=== PATIENT | male | born 1950 | race Caucasian/White ===

== ENCOUNTER 2020-05-09 15:34 | Emergency (ER) | payer MEDICARE, MEDICAID, SELFPAY ==
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
--- NOTE | 2020-05-09 16:04 | ECG_ITS ---
Measurements Intervals [place] Rate: 97 P: 64 PA: 155 QRS: 66 QRSD: 85 T: 24 QT: 334 QTc: 425 Interpretive Statements SINUS RHYTHM NONSPECIFIC ST ABNORMALITY- ANTEROLAT/INF LEADS BASELINE WANDER- V3, V5 BORDERLINE ECG Electronically Signed On 05-09-2020 18:50:23 CDT by Juan Juares D.O.
[2020-05-09 16:06] VITALS: BP 166/101; PULSE 96; RESP 16; TEMP 36.6; O2SAT 96
[2020-05-09 16:11] VITALS: BP 166/101; PULSE 96; RESP 15; O2SAT 96
[2020-05-09 16:16] LABS: Basophils Absolute Auto 0.1 K/mm3 (0.0-0.1); Basophils Percent Auto 0.8 % (0.2-1.2); Eosinophils Percent Auto 0.3 % (0-4.4); Hematocrit 44.6 % (42.0-52.0); Hemoglobin 13.5 g/dL (14.0-18.0); Immature Granulocyte Percent A 0.8 % (0-0.5); Lymphocytes Absolute Auto 1.65 K/mm3 (0.9-3.2); Lymphocytes Percent Auto 13.2 % (18.3-44.2); Mean Corpuscular HGB Conc 30.3 g/dl (32-36); Mean Corpuscular Hemoglobin 22.7 pg (26-34); Mean Platelet Volume 8.1 fl (7.4-10.4); Monocytes Absolute Auto 0.8 K/mm3 (0.1-0.6); Monocytes Percent Auto 6.5 % (2.6-8.5); Neutrophils Absolute Auto 9.8 K/mm3 (1.3-6.7); Neutrophils Percent Auto 78.4 % (45.5-73.1); Platelet Count Result 329 k/mm3 (150-375); Red Blood Count 5.95 M/mm3 (4.6-6.20); Red Cell Distribution Width 14.8 % (11.5-14.5); White Blood Count 12.5 K/mm3 (4.5-10.0)
[2020-05-09 16:27] LABS: Alanine Aminotransferase 11 U/L (4-50); Albumin Level 4.1 g/dL (3.5-5.1); Alkaline Phosphatase 134 U/L (38-126); Anion Gap 8 mmol/L (8-16); Aspartate Amino Transferase 29 U/L (17-59); Bilirubin,Total 0.9 mg/dL (0.2-1.3); Blood Urea Nitrogen 14 mg/dL (9-20); Calcium 9.3 mg/dL (8.4-10.2); Carbon Dioxide 30 mmol/L (22-30); Chloride 100 mmol/L (98-107); Estimated CRCL calculation 84 ml/min; Estimated Glomerular Filt Rate > 60; Glucose 126 mg/dL (75-110); Potassium 4.4 mmol/L (3.4-5.0); Sodium 138 mmol/L (137-145)
[2020-05-09 17:30] VITALS: BP 165/106; PULSE 97; RESP 16; O2SAT 97
--- NOTE | 2020-05-09 18:35 | ED.GENADULT ---
HPI - General Adult General Chief complaint: Skin/Abscess/Foreign Body Stated complaint: cyst/mass lt axilla, weakness Time Seen by Provider: 05/09/20 16:52 Source: patient and family Mode of arrival: ambulatory Limitations: no limitations History of Present Illness HPI narrative: 69 years old white male, insignificant past medical history, presents with a large mass at the left axilla for 10 to 12 months, the last few weeks patient been losing weight. Patient denies any fever, chills, nausea, vomiting, diarrhea, constipation, shortness of breath, chest pain, back pain. Patient does not have a family physician, last time was seen by years ago. Patient does not smoke, does not drink or use drugs. Patient lives with family. Related Data Home Medications Medication Instructions Recorded Confirmed No Home Medications 05/09/20 05/09/20 Allergies Allergy/AdvReac Type Severity Reaction Status Date / Time No Known Allergies Allergy Verified 05/09/20 16:12 Review of Systems Review of Systems: Narrative: CONSTITUTIONAL: Denies fever, chills, or sweats. EYES: Denies visual changes, redness, or discharge. ENT: Denies rhinorrhea, congestion, sore throat, or otalgia. CARDIOVASCULAR: Denies chest pain, palpitations, or edema. RESPIRATORY: Denies cough or dyspnea. GASTROINTESTINAL: Denies abdominal pain, nausea, vomiting, or diarrhea. GENITOURINARY: Denies dysuria or hematuria. SKIN: Denies rash or itching. MUSCULOSKELETAL: Denies back pain, joint pain, or myalgia. NEUROLOGIC: Denies headache, numbness, or weakness. PSYCHIATRIC: Denies anxiety or depression. PMFSH Social History Social History (Updated 05/09/20 @ 18:38 by Lizzie Warner MD) Second hand tobacco smoke exposure: No Alcohol intake: never Substance use: never Living arrangements: with family Gender identity (if verbalized by the patient): Male Exam Narrative: Exam Narrative: General appearance: Well-developed, well-nourished Skin: Normal color Head: Normocephalic, nontraumatic Eyes: Clear conjunctiva ENT: Oropharynx normal, ears normal, nose normal Neck: Supple, nontender Chest and respiratory: Airway patent, no respiratory distress, no accessory muscle use, large, hard mass at the left axilla more anteriorly, 15 x 15 cm Heart: Regular rate/rhythm Abdomen: Soft, nontender, no organomegaly, quiet bowel sounds Vascular: Normal peripheral pulses, normal capillary refill. 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 My concern is malignancy. Labs, chest x-ray, UA, ordered. Further plan to follow. Differential Diagnosis Differential Diagnosis: Malignancy, electrolyte imbalance, sarcoidosis Vital Signs Vital Signs: Vital Signs Temperature 36.6 C 05/09/20 16:06 Pulse Rate 96 05/09/20 16:06 Respiratory Rate 16 05/09/20 16:06 Blood Pressure 166/101 H 05/09/20 16:06 Pulse Oximetry 96 05/09/20 16:06 Temperature 36.6 C 05/09/20 16:06 Pulse Rate 96 05/09/20 1
[2020-05-09 18:59] VITALS: BP 178/107; PULSE 98; RESP 16; O2SAT 97
== END 2020-05-09 19:00 | disposition home or self-care (01) ==
PROVIDERS: Emergency Medicine; Emergency Provider Emergency Medicine
DX: C18.6 Malignant neoplasm of descending colon (principal); C79.89 Secondary malignant neoplasm of other specified sites
CPT/HCPCS: 36415; 71046; 71260; 74177; 80053; 85025; 93005; 99284; Q9967

== ENCOUNTER 2020-05-16 15:25 | Outpatient (CLI) | payer MEDICARE, MEDICAID, SELFPAY ==
[2020-05-16 15:54] LABS: Basophils Absolute Auto 0.1 K/mm3 (0.0-0.1); Basophils Percent Auto 0.5 % (0.2-1.2); Eosinophils Percent Auto 0.3 % (0-4.4); Hematocrit 45.4 % (42.0-52.0); Hemoglobin 13.9 g/dL (14.0-18.0); Immature Granulocyte Absolute 0.08 K/mm3 (0.00-0.031); Immature Granulocyte Percent A 0.7 % (0-0.5); Lymphocytes Absolute Auto 1.65 K/mm3 (0.9-3.2); Lymphocytes Percent Auto 14.1 % (18.3-44.2); Mean Corpuscular HGB Conc 30.6 g/dl (32-36); Mean Corpuscular Hemoglobin 22.5 pg (26-34); Mean Corpuscular Volume 73.5 fl (80-100); Mean Platelet Volume 8.5 fl (7.4-10.4); Monocytes Absolute Auto 0.6 K/mm3 (0.1-0.6); Monocytes Percent Auto 5.2 % (2.6-8.5); Neutrophils Absolute Auto 9.3 K/mm3 (1.3-6.7); Neutrophils Percent Auto 79.2 % (45.5-73.1); Platelet Count Result 269 k/mm3 (150-375); Red Blood Count 6.18 M/mm3 (4.6-6.20); Red Cell Distribution Width 16.2 % (11.5-14.5); White Blood Count 11.7 K/mm3 (4.5-10.0)
[2020-05-16 16:50] LABS: Iron 25 ug/dL (49-181)
[2020-05-16 17:01] LABS: Percent Iron Saturation 11 % (20-50)
[2020-05-16 17:39] LABS: Carcinoembryonic Antigen < 0.3 ng/mL (0.0-3.0)
== END 2020-05-16 15:26 | disposition home or self-care (01) ==
PROVIDERS: Visit Provider Internal Medicine Hematology & Oncology
DX: C18.6 Malignant neoplasm of descending colon (principal)
CPT/HCPCS: 36415; 82378; 82728; 83540; 83550; 85025

== ENCOUNTER 2020-05-22 00:31 | Outpatient (CLI) | payer MEDICARE, MEDICAID, SELFPAY ==
[2020-05-22 16:32] LABS: SARS-CoV-2 RNA PCR Negative
== END 2020-05-22 00:32 | disposition home or self-care (01) ==
LOC: ANHCOVIDDT 00:32
PROVIDERS: Visit Provider Surgery
DX: Z01.812 Encounter for preprocedural laboratory examination (principal); Z20.828 Contact with and (suspected) exposure to other viral communicable diseases
CPT/HCPCS: 87635; C9803; U0003

== ENCOUNTER 2020-05-24 00:32 | Day surgery (SDC) | payer MEDICARE, MEDICAID, SELFPAY ==
[2020-05-18 15:38] VITALS: BMI 28.1
--- NOTE | 2020-05-23 14:34 | P.PNAN_ITS ---
Anes - Initial Pre Proc Eval Procedure: Operation Date: 05/24/20 13:30 Proposed Procedures p Insertion Cholo Cath - Loyda Conner MD Date/Time: 05/23/20 14:34 Surgeon: Loyda Conner MD Pre Op Diagnosis: Malignant Neoplasm Of Descending Colon Patient Data Age: 69 Gender: M Height: 1.73 m Weight: 83.95 kg Allergies Allergy/AdvReac Type Severity Reaction Status Date / Time No Known Allergies Allergy Verified 05/24/20 11:33 Home Medications Medication Instructions Recorded Confirmed Type oxycodone-acetaminophen [Percocet] 1 tablet PO Q4H PRN #30 tablet 05/09/20 05/24/20 Rx ECG: Date of Service: 05/09/20 Procedure(s): CA 12 lead EKG Accession Number(s): [id number] cc: ~ Measurements Intervals [place] Rate: 97 P: 64 RI: 155 QRS: 66 QRSD: 85 T: 24 QT: 334 QTc: 425 Interpretive Statements SINUS RHYTHM NONSPECIFIC ST ABNORMALITY- ANTEROLAT/INF LEADS BASELINE WANDER- V3, V5 BORDERLINE ECG Electronically Signed On 05-09-2020 18:50:23 CDT by Juan Juares D.O. Dictated By: Juan Juares DO 05/09/20 1603 Patient hx anesthesia problems: none Family hx anesthesia problems: none PMFSH Past Medical History Medical History (Updated 05/23/20 @ 14:35 by Faustino Heller MD) Colon cancer COLON CA DX 05/02/20 Mass of left axilla Social History Social History (Updated 05/09/20 @ 18:38 by Lizzie Warner MD) Smoking packs per day: 1 Smoking cigarettes per day: 20.0 Years smoked: 8 Smoking pack-years: 8.00 Smoking status: Former smoker Tobacco type: cigarettes Second hand tobacco smoke exposure: No Smoking end date: 09/15/74 Alcohol intake: never Substance use: never Living arrangements: with family Gender identity (if verbalized by the patient): Male Spiritual care concerns: No Anes - Eval Final PreProcedure Day of Procedure 05/23/20 14:34 Patient weight: overweight Heart: regular rate and rhythm Lungs: clear to auscultation and normal air movement Airway: Mallampati scale class II Neurological: alert and oriented Last oral intake: >/= 8 hours ASA classification: III Emergent: no Anesthetic plan: proceed Anesthesia type and monitoring: general GIVS Informed Consent: The patient's anesthetic plan and its attendant risks and benefits were discussed with the patient/family/POA. Questions were solicited and answers provided to the satisfaction of the patient/family/POA.
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
--- NOTE | ~2020-05-24 | US_ITS ---
EXAMINATION: US biopsy lymph node DATE: 05/24/2020 11:41 INDICATION: Malignant neoplasm of the descending colon. Metastatic left axillary mass. TECHNIQUE: The procedure including the risks and benefits was discussed with the patient. Risks discu ssed included bleeding and infection. The patient understood the risks and agreed to proceed. The sk in overlying the left axilla was prepped and draped in usual sterile fashion. Anesthetic was adminis tered with 1% lidocaine subcutaneously. An 18 gauge core biopsy needle was advanced under continuous ultrasound observation to the lesion of interest. 5 core biopsy specimens were obtained. The needl e was removed and the entry site was cleaned and dressed. Post procedure ultrasound demonstrated no hemorrhage. FINDINGS: Ultrasound images demonstrate biopsy needle advanced into an incompletely visualized hypoec hoic mass with lobular margins at the left axilla. The visualized portions of the mass measures at le ast 7.7 cm, reportedly 15.[address] IMPRESSION: 1. Successful Ultrasound-guided biopsy of a 15.5 cm left axillary mass. Reviewed, dictated and finalized at location A.
--- NOTE | ~2020-05-24 | XR_ITS ---
EXAMINATION: XR fl guide central line place INDICATION: Port-A-Cath insertion TECHNIQUE: Three intraoperative fluoroscopic images are submitted for review. Total fluoroscopic time is 17.8 seconds. I was not present for catheter insertion. COMPARISON: None available FINDINGS: Fluoroscopic images demonstrate a right subclavian Port-A-Cath ending with its tip in the p roximal superior vena cava. Check pelvis project over the right thorax. Pulmonary masses are also not ed, consistent with metastatic disease. IMPRESSION: 1. Right subclavian Port-A-Cath insertion. Please refer to procedure note for full details. Reviewed, dictated and finalized at location B. IMPRESSION: 1. Right subclavian Port-A-Cath insertion. Please refer to procedure note for f ull details.
[2020-05-24 11:50] VITALS: BP 143/103; PULSE 95; RESP 18; TEMP 36; O2SAT 98
[2020-05-24] MEDS: LACTATED RINGERS 1,000 ML 30 ML IV CONT (12:05)
[2020-05-24 12:23] LABS: INR 1.2; Partial Thromboplastin Time 32.4 SECONDS (22.3-36.8); Prothrombin Time 14.9 Seconds (11.1-14.7)
[2020-05-24] MEDS: KETOROLAC 15 MG/ML VIAL (*BKC) IV PUSH (12:23)
--- NOTE | 2020-05-24 12:46 | PM.IMHP ---
H&P: HPI History of Present Illness Date/Time: 05/24/20 12:46 Chief complaint: Malignant Neoplasm Of Descending Colon Narrative: Germain Hays is a 69 year old male presenting for placement of VAD. Pt recently dx'd c likely stage 4 colon cancer. Pt c mets to L axilla, L lung, multiple LN basins. Pt reports he has not been feeling well for quite some time and has had significant unintentional wt loss. Review of Systems Constitutional: Constitutional: Reports body ache(s), Denies chills, Denies difficulty sleeping, Reports fatigue, Reports lethargy, Denies night sweats and Reports weakness Eyes: Eyes: Reports no additional eye complaints ENT: Reports system reviewed and no additional complaints, except as documented Cardiovascular: Cardiovascular: Reports no additional cardiovascular complaints Respiratory: Respiratory: Reports no additional respiratory complaints Gastrointestinal: Gastrointestinal: Reports no additional gastrointestinal complaints Genitourinary: Genitourinary: Reports no additional male genitourinary complaints Musculoskeletal: Musculoskeletal: Reports no additional musculoskeletal complaints Integumentary/Breasts: Skin/Breast: Reports system reviewed and no additional complaints, except as docu Neurologic: Reports system reviewed and no additional complaints, except as documented Psychiatric: Psychiatric: Reports no additional psychiatric complaints PMFSH Past Medical History Medical History Colon cancer COLON CA DX 05/02/20 Mass of left axilla Family History Family History (Updated 05/24/20 @ 12:49 by Loyda Conner MD) Father Hypertension Social History Social History Smoking packs per day: 1 Smoking cigarettes per day: 20.0 Years smoked: 8 Smoking pack-years: 8.00 Smoking status: Former smoker Tobacco type: cigarettes Second hand tobacco smoke exposure: No Smoking end date: 09/15/74 Alcohol intake: never Substance use: never Living arrangements: with family Gender identity (if verbalized by the patient): Male Spiritual care concerns: No Meds Home Medications and Allergies Home Medications Medication Instructions Recorded Confirmed Type oxycodone-acetaminophen [Percocet] 1 tablet PO Q4H PRN #30 tablet 05/09/20 05/24/20 Rx Allergies Allergy/AdvReac Type Severity Reaction Status Date / Time No Known Allergies Allergy Verified 09/09/20 11:33 Vital Signs Vital Signs - 24 hr 05/24/20 11:50 Temperature 36.0 C L Pulse Rate 95 Respiratory Rate 18 Blood Pressure 143/103 H Pulse Oximetry 98 Exam Const: General: comfortable and no acute distress HENMT: Mouth: Yes moist mucous membranes Eyes: General: appearance normal, both eyes and all related structures Pupils: Equal, round and reactive pupils present EOM: EOMs intact bilaterally Neck: Neck: supple and no JVD Lymphatic: lymphadenopathy not noted Resp: Auscultation: clear to auscultation bilaterally Cardio: Rate: regular rate Rhythm: regular rhythm GI: Inspection: distended GI Palp: Yes Soft to palpation, No Tenderness to palpation present (GI), No Guarding due to palpation present (GI) and No Hernia present Skin: General skin exam: normal color and no rashes or lesions noted Neuro: Speech: normal speech Extrem: General: normal to inspection Psych: Mental Status: mental status grossly normal Assessment and Plan Assessment and plan (1) Colon cancer: Code(s): C18.9 - Malignant neoplasm of colon, unspecified Status: Acute Assessment and Plan: will place VAD for access neoadjuvant chemotx (2) Mass of left axilla: Code(s): R22.32 - Localized swelling, mass and lump, left upper limb Status: Acute Assessment and Plan: await bx results
--- NOTE | 2020-05-24 12:50 | WPDHPUPDATE1 ---
History and Physical Update Update Date/Time: 05/24/20 12:50 History and Physical has been reviewed, including an updated exam of the patient. There are NO changes in the patient's condition. Risks, benefits, and alternatives have been discussed and questions answered. Patient agrees to proceed with procedure.
[2020-05-24] MEDS: ceFAZolin 2 GM/D5W 50 ML 2 GM/50 ML BAG IVPB (13:13)
[2020-05-24] MEDS: BUPIVACAINE/EPINEPHRINE 0.5% 30 ML VIAL INFILTRATE (13:35)
[2020-05-24] MEDS: HEPARIN SODIUM 5,000 UNITS/ML VIAL 5000 UNITS IRRIGATION (13:35)
[2020-05-24] MEDS: HEPARIN SODIUM, PORCINE 10,000 UNITS/10 ML VIAL 10000 UNITS IV PUSH (13:40)
--- NOTE | 2020-05-24 13:47 | PM.PROC ---
Procedure Note - Detailed Date of procedure: 05/24/20 Pre-op diagnosis: Malignant Neoplasm Of Descending Colon Post-op diagnosis: same Procedure performed: placement of right subclavian venous access device under fluroscopic guidance Description of procedure: Patient was brought into the operating room and placed in the supine position. After adequate induction of mac anesthesia, the patient was prepped and draped in normal sterile fashion. Time-out was then done to verify the patient's identity, as well as the procedure being performed. I began by making a small incision in the right chest, I then gained access into the right subclavian vein with an 18 gauge needle. I then placed the guidewire into the vein and confirmed placement via fluoroscopic guidance. I then locally anesthetized the area in the right chest. I then enlarged the incision around the guidewire including making a subcutaneous pocket inferiorly to allow placement of the port itself. I then placed a dilating sheath over the guidewire into the right subclavian vein via sterile Seldinger technique. This was once again done and confirmed via fluoroscopic guidance. I then removed the dilator and the guidewire, now just leaving the sheath in the vein. I then fed the previously flushed catheter into the right subclavian vein under fluoroscopic guidance. At approximately 17 cm, the catheter was noted to be near the atrial caval junction. I then peeled away the sheath, now just leaving the catheter in the vein. I then was able to easily draw and flush from the catheter. The catheter was cut to fit and attached to the port itself. The port was placed into the previously made subcutaneous pocket and sutured in with 0 Ethibond suture. Final fluoroscopic view showed the termination of the catheter at the atrial caval junction with a nice smooth curvature back to the port itself. I was able to gain access to the port with a Ugarte needle and was able to easily draw and flush from the port. I then flushed 4 cc of a final heparin flush into the port. The incision was closed with 3 0 Vicryl suture in the subcutaneous tissue and the skin was closed with 4 O Monocryl subcuticular suture. Dermabond was then placed on wound. The patient tolerated the procedure well and will be sent to the recovery room in stable condition. Implants: R SCV VAD Anesthesia: MAC and local Surgeon: Loyda Conner MD Estimated blood loss (mL): 5 Drains: No Packing: No Pathology: none sent Complications: No immediate complications Condition: stable Disposition: PACU Findings: placement of R SCV VAD via 1st stick
[2020-05-24 13:54] VITALS: BP 145/69; PULSE 80; RESP 12; O2SAT 97
[2020-05-24 14:24] VITALS: BP 148/70; PULSE 81; RESP 12
[2020-05-24 14:54] VITALS: BP 151/77; PULSE 81; RESP 12
== END 2020-05-24 15:20 | disposition home or self-care (01) ==
PROVIDERS: Visit Provider Surgery
PROC: (CPT 36561; principal; 2020-05-24 13:30)
DX: C18.6 Malignant neoplasm of descending colon (principal); C77.3 Secondary and unspecified malignant neoplasm of axilla and upper limb lymph nodes; C78.02 Secondary malignant neoplasm of left lung; Z87.891 Personal history of nicotine dependence
CPT/HCPCS: 36561; 36415; 38505; 76942; 77001; 85610; 85730; 88305; 88342; C1788; J0690; J1644; J1885; J2250; J2405; J2704; J3010; J7030; J7120

== ENCOUNTER 2020-06-16 09:35 | Outpatient (CLI) | payer MEDICARE, MEDICAID, SELFPAY ==
--- NOTE | ~2020-06-16 | CT_ITS ---
EXAMINATION: CT brain w con EXAM DATE: 06/16/2020 10:13 INDICATION: Melanoma of overlapping sites. TECHNIQUE: Spiral CT of the head was performed following injection of 100 mL intravenous Omnipaque 35 0 solution. Axial, coronal and sagittal images were reviewed. The dose-length product (DLP) for thi s examination was 605.33 mGy-cm. The exposure was tailored according to patient size, and iterative reconstruction (ASIR) was used as additional dose reduction technique. There is no prior study for c omparison. FINDINGS: There are no areas of abnormal enhancement on the post contrast images. There is no acute i ntraparenchymal hemorrhage. No evidence of intraparenchymal brain mass lesion. No evidence of acute infarction. Please note that initial head CT has limited sensitivity for small or acute infarctions . There is mild periventricular and subcortical hypodensity, nonspecific but probably related to smal l vessel ischemic disease. There is mild prominence of the sulci and ventricles related to cerebral atrophy. There is intracranial carotid arteriosclerosis. There are no extra-axial collections. T here is no mass effect or midline shift. The orbits are unremarkable. Soft tissue is unremarkable. The visualized sinuses and mastoid air cells are well aerated. IMPRESSION: 1. No evidence of intracranial metastatic disease. 2. Chronic age related findings. Reviewed, dictated and finalized at location A.
== END 2020-06-16 09:36 | disposition home or self-care (01) ==
LOC: ANHIMG 09:44
PROVIDERS: Visit Provider Internal Medicine Hematology & Oncology
DX: C43.8 Malignant melanoma of overlapping sites of skin (principal)
CPT/HCPCS: 70460; Q9967

== ENCOUNTER 2020-08-15 15:31 | Inpatient (IN) | payer MEDICARE, MEDICAID, SELFPAY ==
[2020-08-15] VITALS (20 sets, daily range): BP systolic 50–148; BP diastolic 42–97; PULSE 85–110; RESP 14–34; TEMP 36.1–36.8; O2SAT 76–100; BMI 25.4
--- NOTE | ~2020-08-15 | XR_ITS ---
XR abdomen/kub 1V 08/18/2020 10:31 Indication: Surgical planning Procedure: KUB Comparison: 08/16/2020 Findings: Bowel pattern is nonobstructive. There is radiopaque metallic foreign bodies overlying the right upper abdomen. There are bilateral internal ureteral stents, in expected location. No acute oss eous abnormality. Mild levoscoliosis centered at L3. There is a battery pack overlying the right late ral abdomen. Impression: 1: No acute abdominal abnormality. Reviewed, dictated and finalized at location B. AL MEDIA MARKETER Impression: 1: No acute abdominal abnormality.
--- NOTE | ~2020-08-15 | XR_ITS ---
EXAMINATION: XR fl Dobhoff insert/rad w img DATE: 08/22/2020 13:23 INDICATION: Dobbhoff feeding tube placement TECHNIQUE: A Dobbhoff type feeding tube was advanced into the duodenum utilizing intermittent fluoroscopy. Final image demonstrates the feeding tube in position with the weighted tip at the expected location of th e ligament of Treitz. The tube was flushed with 10 mL sterile saline and fixed to the nares with adhe sive tape. 2 fluoroscopic images of the upper abdomen were recorded. The amount of fluoroscopy time u sed during this procedure was 0.6 minutes. There were no immediate complications. FINDINGS/IMPRESSION: Successful fluoroscopy-guided Dobbhoff feeding tube placement with distal tip in the fourth portion o f the duodenum. Reviewed, dictated and finalized at location A. Y EQUIPMENT INSTALLER
--- NOTE | ~2020-08-15 | US_ITS ---
EXAMINATION: US paracentesis abd w/image DATE: 08/16/2020 14:16 INDICATION: Ascites. TECHNIQUE: The skin was prepped and draped in sterile fashion. 1% lidocaine was used for local anesth esia. Under ultrasound guidance, a 5 Fr catheter with trochar was advanced into the ascites in the [facility] lower quadrant. Fluid was aspirated. The catheter was removed, and a dressing was applied. There were no immediate complications. FINDINGS: Ultrasound images demonstrate ascites and the catheter within the fluid. IMPRESSION: 1. Successful ultrasound-guided paracentesis yielding 4600 mL of red fluid. Reviewed, dictated and finalized at location A. GER DESKTOP
--- NOTE | ~2020-08-15 | XR_ITS ---
EXAMINATION: XR abdomen/kub 1V DATE: 08/16/2020 14:12 INDICATION: Kidney stones. TECHNIQUE: A supine view of the abdomen on 2 radiographs was obtained. COMPARISON: CT abdomen and pelvis 08/15/2020 FINDINGS: There are bilateral internal ureteral stent in expected position. There is an 8 mm stone in left kidney lower pole. Pieces of shot overlie the right chest and abdomen, which is chronic. There are lung nodules and masses, consistent with metastatic disease. There are no dilated loops of bowel. IMPRESSION: 1. Left kidney stone. 2. Bilateral internal ureteral stents in expected positions. 3. Lung nodules and masses, consistent metastatic disease. Reviewed, dictated and finalized at location A. R ROOM MANAGER
--- NOTE | ~2020-08-15 | XR_ITS ---
EXAMINATION: XR abdomen/kub 1V DATE: 08/22/2020 15:00 INDICATION: Nasogastric tube placement. TECHNIQUE: A supine view of the abdomen was obtained. COMPARISON: CT abdomen and pelvis 08/18/20 FINDINGS: The lower abdomen is excluded. The nasoenteric tube tip is in the second portion of the duo denum. There is a right subclavian port with tip in superior vena cava. There are many pieces of shot overlying right chest and abdomen. There are bilateral pulmonary nodules and left lung masses, consi stent with metastatic disease. IMPRESSION: 1. Nasoenteric tube tip in the second portion of the duodenum. 2. Pulmonary nodules and masses, consistent with metastatic disease. Reviewed, dictated and finalized at location B. PRINTING PRESS OPERATOR
--- NOTE | ~2020-08-15 | CT_ITS ---
EXAMINATION: CT abdomen pelvis wo con DATE: 08/18/2020 10:41 INDICATION: Kidney stone. TECHNIQUE: Computed tomography (CT) of the abdomen and pelvis was performed without intravenous contr ast. Automated exposure control and iterative reconstruction technique were employed. The dose-length product was 867.97 mGy-cm. COMPARISON: CT abdomen and pelvis 08/15/2020, 05/09/20 FINDINGS: The visualized portions of the lung bases demonstrate small pleural effusions. There are sc attered nodules and masses in the lungs. There is a 4.1 x 4.0 cm mass in left lung lower lobe that me asured 5.4 x 4.9 cm on 05/09/20. The heart size is normal. There are coronary artery calcifications. N o pericardial effusion. There are multiple pieces of shot in the right body wall, right pleural space , and right lung. The liver is normal. There is mild splenomegaly measuring 14.0 cm. There are gallst ones in the gallbladder, which is distended. The pancreas and left adrenal gland are normal. There is a 4.2 cm mass in right adrenal gland measuring soft tissue attenuation, stable from 05/24/20. There ar e approximately 7 stones in right kidney measuring up to 6 mm. There is a right internal ureteral abel nt in expected position. There is a 2 mm stone in distal right ureter. There are greater than 10 ston es in left kidney measuring up to 5 mm. There is a left internal ureteral stent in expected position. The bladder is decompressed by a Matt catheter. There are no dilated loops of bowel. The appendix i s not visualized. There is a large volume of ascites. There are multiple masses in the peritoneum, re troperitoneal fat, and body wall. The largest peritoneal mass measures 8.1 cm, increased from 6.9 cm on 05/09/20. A 4.2 cm peritoneal mass measured 3.1 cm on 05/09/20.Partially visualized is a mass in the right thigh. There are no pathologically enlarged lymph nodes. There is mild thoracolumbar spondylos is. IMPRESSION: 1. 2 mm stone in distal right ureter. Bilateral internal ureteral stents in expected positions. 2. Bilateral kidney stones. 3. Lung nodules and mass, right adrenal mass, intra-abdominal and body wall masses, and right thigh m ass, consistent with metastatic disease. 4. Small pleural effusions, new from 05/09/20. 5. Large volume of ascites, new from 05/09/20. 6. Cholelithiasis. Gallbladder distention may be secondary to fasting. Correlate with physical exam t o exclude acute cholecystitis. Reviewed, dictated and finalized at location A. NSION MILL WORKER IMPRESSION: 1. 2 mm stone in distal right ureter. Bilateral internal ureteral stents in exp ected positions. 2. Bilateral kidney stones. 3. Lung nodules and mass, right adrenal mass, intra-abdominal and body wall mas ses, and right thigh mass, consistent with metastatic disease. 4. Small pleural effusions, new from 05/09/20. 5. Large volume of ascites, new from 05/09/20. 6. Cholelithiasis. Gallbladder distention may be secondary to fasting. Correlat e with physical exam to exclude acute cholecystitis.
--- NOTE | ~2020-08-15 | XR_ITS ---
XR chest 1V portable 08/15/2020 16:55 Indication: Shortness of breath. Transient alteration of awareness. Procedure: AP portable chest Comparison: 05/24/2020 Findings: There has been reduction of size of multiple bilateral pulmonary masses, consistent with re sponse to therapy. Portacatheter tip in the SVC. There are multiple metallic foreign bodies overlying the right chest wall. No focal pneumonia, pleural effusion or pneumothorax. No acute osseous abnorma lity. Impression: 1: Decreased size of multiple bilateral pulmonary nodules/masses, consistent with interval response t o therapy. Reviewed, dictated and finalized at location B. NSIC SOCIAL WORKER Impression: 1: Decreased size of multiple bilateral pulmonary nodules/masses, consistent wi th interval response to therapy.
--- NOTE | ~2020-08-15 | XR_ITS ---
EXAMINATION: XR abdomen/kub 1V DATE: 08/24/2020 10:12 INDICATION: Vomiting. TECHNIQUE: A supine view of the abdomen was obtained. COMPARISON: Abdomen single view 08/22/2020 FINDINGS: There are no dilated loops of bowel. The nasoenteric tube tip is in the second portion of t he duodenum. There are bilateral internal ureteral stents in expected positions. There are nodules an d masses in the lungs, consistent with metastatic disease. The port tip is in superior vena cava. The re are multiple pieces of shot overlying the right chest and abdomen. IMPRESSION: 1. Normal bowel gas pattern. 2. Pulmonary nodules and masses, consistent with metastatic disease. Reviewed, dictated and finalized at location B. SE FACTORY WORKER
--- NOTE | ~2020-08-15 | XR_ITS ---
EXAMINATION: XR chest 1V portable EXAM DATE: 08/17/2020 06:17 INDICATION: Shortness of breath. TECHNIQUE: Portable AP frontal chest x-ray was obtained. Comparison is made to prior examination from 08/15/2020. FINDINGS: There is a right-sided Port-A-Cath. Urich overlying right axilla. Pulmonary metastatic d isease unchanged. No evidence of superimposed acute airspace disease. No pneumothorax or pleural effu eitan. Cardiomediastinal silhouette is normal. There are no osseous abnormalities identified. IMPRESSION: 1. No acute cardiopulmonary findings. 2. Pulmonary metastases unchanged. Reviewed, dictated and finalized at location A. IDENT COMMERCIAL BANK
--- NOTE | ~2020-08-15 | XR_ITS ---
EXAMINATION: XR retrograde pyelo w/stent BI DATE: 08/15/2020 22:14 INDICATION: Bilateral obstructing nephrolithiasis with ureteral stent placement. TECHNIQUE: 5 fluoroscopic images of the abdomen and pelvis were obtained during procedure performed matt Hays. Radiologist was not present for the imaging or procedure. The amount of fluoroscopy ti me used during this procedure was 3.1 minutes. COMPARISON: None. FINDINGS: Retrograde contrast injections in the bilateral ureters demonstrate mild right hydronephrosis. Bilate ral ureteral stents have been placed with proximal tips located in the upper pole calyces of both the left and right kidneys and with distal loops formed in the bladder. Matt catheter in the bladder. S mall metallic BB projects over the right upper quadrant. IMPRESSION: 1. Bilateral internal ureteral stents in expected positions. See procedure note for further detail. Reviewed, dictated and finalized at location A. GLOBAL
--- NOTE | ~2020-08-15 | US_ITS ---
EXAMINATION: US art doppler w press UE BI DATE: 08/22/2020 14:24 INDICATION: Cyanotic fingers TECHNIQUE: Segmental pressures and plethysmographic and Doppler waveforms of the upper extremity lexii prince were obtained. COMPARISON: None. FINDINGS: Left brachial artery pressures of 133 mm Hg. Right brachial artery pressures as well as pressures thr oughout the right upper limb were unable to be obtained due to prior surgery at the right arm. The ri ght finger:brachial systolic pressure ratio is unable to be obtained due to inability to discern a do pplerable waveform (normal > 0.8). Arterial waveforms are biphasic with brisk systolic upstrokes at t he right subclavian and axillary arteries (normal upstroke < 0.2 s). Parvus or tardus waveforms with small broadened systolic peaks nearly indiscernible above the baseline arteries at the right brachial and radial arteries. No discernible waveform at the right ulnar artery. The left finger:brachial systolic pressure ratio is also unable to be obtained due to inability to ob tain a waveform at the fingers. Segmental pressure gradients between the left brachial artery and the left ulnar and radial arteries are normal. Arterial waveforms are biphasic with brisk systolic upstr okes throughout the left upper limb. IMPRESSION: 1. No dopplerable waveforms at the fingers of either hand. There are normal pressure gradients extend ing to the left ulnar and radial arteries with biphasic waveforms with brisk upstrokes throughout the left upper limb suggesting small vessel arterial occlusive disease. 2. Small widely broadened systolic peaks with delayed upstrokes at the right brachial and radial lexii prince and essentially no dopplerable waveform at the right ulnar artery suggesting suggest significant stenosis between the right axillary and brachial arteries. Reviewed, dictated and finalized at location A. CHECKER IMPRESSION: 1. No dopplerable waveforms at the fingers of either hand. There are normal pre ssure gradients extending to the left ulnar and radial arteries with biphasic w aveforms with brisk upstrokes throughout the left upper limb suggesting small v essel arterial occlusive disease. 2. Small widely broadened systolic peaks with delayed upstrokes at the right br achial and radial arteries and essentially no dopplerable waveform at the right ulnar artery suggesting suggest significant stenosis between the right axillar y and brachial arteries.
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
[2020-08-15 15:51] LABS: Glucose Point of Care 126 (65-105)
--- NOTE | 2020-08-15 16:18 | ECG_ITS ---
Measurements Intervals [place] Rate: 105 P: 76 MN: 156 QRS: 89 QRSD: 59 T: 38 QT: 289 QTc: 382 Interpretive Statements SINUS TACHYCARDIA BORDERLINE ST-T WAVE ABNORMALITY- INF/HIGH LAT LEADS BASELINE ARTIFACT- I, III, AVR, AVL, V1, V3-V6 BORDERLINE ECG Electronically Signed On 08-15-2020 17:23:45 [employer] by Juan Juares D.O.
[2020-08-15] MEDS: LACTATED RINGERS 1,000 ML 999 ML IV CONT (16:25)
--- NOTE | 2020-08-15 16:38 | ED.GENADULT ---
HPI - General Adult General Chief complaint: Altered Mental Status <Pedro Mcmahon PA-C - Last Filed: 08/15/20 20:07> Stated complaint: PAIN EVERYWHERE CANCER PT <THOMAS Jacobs Last Filed: 08/15/20 20:07> Time Seen by Provider: 08/15/20 16:17 <THOMAS Jacobs Last Filed: 08/15/20 20:07> Source: patient and family <THOMAS Jacobs Last Filed: 08/15/20 20:07> Mode of arrival: ambulatory <THOMAS Jacobs Last Filed: 08/15/20 20:07> Limitations: no limitations <THOMAS Jacobs Last Filed: 08/15/20 20:07> History of Present Illness HPI narrative: Patient is a 69-year-old male who presents to emergency department with stage IV colon cancer diagnosis seeing oncology saw oncology in office today was advised to come to the ER for pain patient notes he has been having pain in his buttock patient had a large bowel movement this morning and again upon arrival on arrival patient very weak and mottled appearing patient notes only pain in his lower buttock. Patient denies injury or trauma patient is alert and oriented to person place and reason for being in the emergency department. Patient is currently receiving immunotherapy has completed chemotherapy as well <THOMAS Jacobs Last Filed: 08/15/20 20:07> Related Data Home medications: Home Medications Medication Instructions Recorded Confirmed No Home Medications 08/16/20 08/16/20 <Pedro Mcmahon PA-C - Last Filed: 08/15/20 20:07> Allergies/adverse reactions: Allergies Allergy/AdvReac Type Severity Reaction Status Date / Time No Known Allergies Allergy Verified 07/14/20 13:47 <THOMAS Jacobs Last Filed: 08/15/20 20:07> Review of Systems Review of Systems: All systems reviewed & are unremarkable except as noted in HPI and below <THOMAS Jacobs Last Filed: 08/15/20 20:07> PMFSH Past Medical History Medical History: Medical History (Updated 08/18/20 @ 09:37 by Geraldine Mattson, CYCLE COUNTER) Malignant melanoma Diagnosed April 2020 with masses in the lungs, right adrenal gland and at the junction of the descending and sigmoid colon and in the subcutaneous and retroperitoneal fat 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 He denies any alcohol use or illicit substance use. He has 2 sons who are reportedly in good health. Primary care physician: Dr. Talib Dietrich oncologist Dr. Burkett Code status: Full code Smoking packs per day: 1 Smoking cigarettes per day: 20.0 Years smoked: 8 Smoking pack-years: 8.00 Smoking status: Former smoker Tobacco type: cigarettes Second hand tobacco smoke exposure: No Smoking end date: 09/15/74 Alcohol intake: former Substance use: never Gender identity (if verbalized by the patient): Male Spiritual care concerns: No <Pedro Mcmahon PA-C - Last Filed: 08/15/20 20:07> Exam Narrative: Exam Narrative: GENERAL: Ill-appearing, malnourished and mottled, and in no acute distress. HEAD: Normocephalic, atraumatic. EYES: PERRLA and EOMI. ENT: Nares clear, no rhinorrhea or epistaxis. Mucous membranes moist. Oropharynx without tonsillar hypertrophy exudate or other lesions. NECK: Supple. No adenopathy or masses. CHEST: Clear to auscultation
[2020-08-15 17:39] LABS: Basophils Percent Auto 0.2 % (0.2-1.2); Hematocrit 29.2 % (42.0-52.0); Hemoglobin 8.9 g/dL (14.0-18.0); Immature Granulocyte Absolute 0.12 K/mm3 (0.00-0.031); Immature Granulocyte Percent A 0.8 % (0-0.5); Lymphocytes Absolute Auto 0.35 K/mm3 (0.9-3.2); Lymphocytes Percent Auto 2.5 % (18.3-44.2); Mean Corpuscular HGB Conc 30.5 g/dl (32-36); Mean Corpuscular Hemoglobin 26.2 pg (26-34); Mean Corpuscular Volume 85.9 fl (80-100); Mean Platelet Volume 8.3 fl (7.4-10.4); Monocytes Absolute Auto 0.5 K/mm3 (0.1-0.6); Monocytes Percent Auto 3.7 % (2.6-8.5); Neutrophils Absolute Auto 13.1 K/mm3 (1.3-6.7); Neutrophils Percent Auto 92.8 % (45.5-73.1); Platelet Count Result 165 k/mm3 (150-375); Red Cell Distribution Width 19.4 % (11.5-14.5); White Blood Count 14.2 K/mm3 (4.5-10.0)
[2020-08-15 17:47] LABS: INR 1.4; Ovalocytes 1+ (NORMAL); Platelet Estimate Adequate (Adequate); Prothrombin Time 17.6 Seconds (11.1-14.7)
[2020-08-15 17:48] LABS: Partial Thromboplastin Time 34.4 SECONDS (22.3-36.8)
[2020-08-15] MEDS: SODIUM CHLORIDE 0.9% IV 1,000 ML 999 ML IV CONT (17:51)
[2020-08-15 17:52] LABS: Albumin Level 2.6 g/dL (3.5-5.1); Alkaline Phosphatase 89 U/L (38-126); Anion Gap 13 mmol/L (8-16); Aspartate Amino Transferase 26 U/L (17-59); Bilirubin,Total 1.2 mg/dL (0.2-1.3); Blood Urea Nitrogen 56 mg/dL (9-20); Calcium 7.7 mg/dL (8.4-10.2); Carbon Dioxide 18 mmol/L (22-30); Chloride 98 mmol/L (98-107); Creatine Kinase 60 U/L (55-170); Estimated Glomerular Filt Rate 25; Glucose 126 mg/dL (75-110); Lipase 78 U/L (23-300); Potassium 4.6 mmol/L (3.4-5.0); Sodium 129 mmol/L (137-145)
[2020-08-15 17:54] LABS: Lactic Acid Reflex 5.3 mmol/L (0.7-2.1)
[2020-08-15 18:08] LABS: Alanine Aminotransferase 15 U/L (4-50); CRP 17.3 mg/dL (<1.0); NT Pro B Type Natriuretic Pept 5640 PG/ML (5-100); Troponin I 0.072 ng/mL (0.000-0.034)
--- NOTE | 2020-08-15 19:17 | PC.NURSE ---
Report to JAMES Carrillo, to continue care.
[2020-08-15 19:53] LABS: Add Urine Microscopic? YES; Appearance Urine Cloudy (Clear); Bacteria Urine Trace /hpf; Bilirubin Urine Negative (Negative); Blood Urine 3+ (Negative); Color Urine Yellow (Yellow); Glucose Urine UA Negative (Negative); Ketones Urine Negative (Negative); Leukocyte Esterase Ur Trace LEU/UL (Negative); Mucus Urine Rare /lpf; Nitrate Urine Negative (Negative); Protein Urine 1+ mg/dL (Negative); RBC Urine >75 /hpf (0-2); Specific Grav Ur 1.015 (1.001-1.035); Squamous Epithelial Cell Urine Rare /hpf (Few); Urobilinogen Urine Negative mg/dL (<2.0); WBC Urine 16-20 /hpf
--- NOTE | 2020-08-15 20:05 | WPDANESEPPF ---
Anes - Initial Pre Proc Eval Procedure: cystoscopy, b/l stent placement Date/Time: 08/15/20 20:05 Surgeon: Saúl Pre Op Diagnosis: B/l hydronephrosis Pre Op Diagnosis: PAIN EVERYWHERE CANCER PT Patient Data Age: 69 Gender: M Height: Weight: 69.2 kg Last Vital Signs Pulse 98 08/15/20 19:08 Resp 18 08/15/20 19:08 BP 130/97 H 08/15/20 18:36 Pulse Ox 100 08/15/20 19:08 Allergies Allergy/AdvReac Type Severity Reaction Status Date / Time No Known Allergies Allergy Verified 07/14/20 13:47 Home Medications Medication Instructions Recorded Confirmed Type oxycodone-acetaminophen [Percocet] 1 tablet PO Q4H PRN #30 tablet 05/09/20 07/21/20 Rx megestrol [Megace] 200 mg PO BID 06/30/20 07/21/20 History Laboratory Tests 08/15/20 08/15/20 08/15/20 15:49 17:24 17:24 WBC 14.2 K/mm3 H K/mm3 (4.5-10.0) RBC 3.40 M/mm3 L M/mm3 (4.6-6.20) Hgb 8.9 g/dL L g/dL (14.0-18.0) Hct 29.2 % L % (42.0-52.0) MCV 85.9 fl fl (80-100) MCH 26.2 pg pg (26-34) MCHC 30.5 g/dl L g/dl (32-36) RDW 19.4 % H % (11.5-14.5) Plt Count 165 k/mm3 k/mm3 (150-375) MPV 8.3 fl fl (7.4-10.4) Immature Gran % (Auto) 0.8 % H % (0-0.5) Neut % (Auto) 92.8 % H % (45.5-73.1) Lymph % (Auto) 2.5 % L % (18.3-44.2) [place] % (Auto) 3.7 % % (2.6-8.5) Eos % (Auto) 0.0 % % (0-4.4) Baso % (Auto) 0.2 % % (0.2-1.2) Lymph # (Auto) 0.35 K/mm3 L K/mm3 (0.9-3.2) [place] # (Auto) 0.5 K/mm3 K/mm3 (0.1-0.6) Eos # (Auto) 0.0 K/mm3 K/mm3 (0-0.3) Baso # (Auto) 0.0 K/mm3 K/mm3 (0.0-0.1) Abs Immat Gran (auto) 0.12 K/mm3 H K/mm3 (0.00-0.031) Absolute Neuts (auto) 13.1 K/mm3 H K/mm3 (1.3-6.7) Absolute Nucleated RBC 0.0 K/mm3 K/mm3 (0.0-0.012) Nucleated RBC % 0.0 % % (0.0-0.2) Platelet Estimate Adequate (Adequate) Ovalocytes 1+ (NORMAL) PT INR APTT Sodium Potassium Chloride Carbon Dioxide Anion Gap BUN Creatinine Estim Creat Clear Calc Estimated GFR Glucose POC Capillary Glucose 126 mg/dl H mg/dl (65-105) Lactic Acid Calcium Total Bilirubin AST ALT Alkaline Phosphatase Total Creatine Kinase Cancelled Troponin I C-Reactive Protein NT-Pro-B Natriuret Pep Total Protein Albumin Lipase Urine Color Urine Appearance Urine pH Ur Specific Guin Urine Protein Urine Glucose (UA) Urine Ketones Ur Blood (Man) Urine Nitrate Urine Bilirubin Urine Urobilinogen Leukocyte Esterase Rfl Urine RBC Urine WBC Ur Squamous Epith Cells Urine Bacteria Urine Mucus 08/15/20 08/15/20 08/15/20 17:24 17:24 17:24 WBC RBC Hgb Hct MCV MCH MCHC RDW Plt Count MPV Immature Gran % (Auto) Neut % (Auto) Lymph % (Auto) [place] % (Auto) Eos % (Auto) Baso % (Auto) Lymph # (Auto) [place] # (Auto) Eos # (Auto) Baso # (Auto) Abs Immat Gran (auto) Absolute Neuts (auto) Absolute Nucleated RBC Nucleated RBC % Platelet Estimate Ovalocytes PT 17.6 Seconds H Seconds
[2020-08-15 20:34] LABS: Reflex Lactic Acid Yes or No Add Lactic
--- NOTE | 2020-08-15 21:11 | WPDURCON ---
Assessment and Plan Additional Plan Germain Hays is a 69 year old male who has has metastatic melanoma who is admitted with failure to thrive and constipation. He has been found to have B ureteral stone, 5 mm L proximal and 6 mm R distal, with bilateral kidney stones and hydronephrosis. He has other findings per CT. I personally reviewed the images and report. He also has an elevated Cr and WBC. He and his report poor fluid and food intake over the past couple months after his metastatic melanoma diagnosis. He has undergone radiation and is currently undergoing immunotherapy. He denies prior h/o kidney stones, prostate/kidney/bladder cancer. His son has a h/o kidney stones. He denies bothersome voiding complaints, GH or dysuria. He has constipation. Denies f/c/n/v. Treatments, alternatives, risks and benefits discussed. Questions answered to satisfaction. Will take emergently to OR for cystoscopy with bilateral ureteral stent placement. He is aware risks include bleeding, infection, pain, inability to place stents and need for nephrostomy tubes, sepsis, . He is amenable to the procedure as planned. Urology Consult Note HPI Date Seen: 08/15/20 Requesting Physician: Taj Hays MD Primary Care Provider: GLOBAL CONSUMER SECTOR VICE PRESIDENT PHYSICIAN Consult Narrative Narrative: Germain Hays is a 69 year old male who has has metastatic melanoma who is admitted with failure to thrive and constipation. He has been found to have B ureteral stone, 5 mm L proximal and 6 mm R distal, with bilateral kidney stones and hydronephrosis. He has other findings per CT. I personally reviewed the images and report. He also has an elevated Cr and WBC. He and his report poor fluid and food intake over the past couple months after his metastatic melanoma diagnosis. He has undergone radiation and is currently undergoing immunotherapy. He denies prior h/o kidney stones, prostate/kidney/bladder cancer. His son has a h/o kidney stones. He denies bothersome voiding complaints, GH or dysuria. He has constipation. He has abd pain. Denies f/c/n/v. Review of Systems Review of Systems: All systems reviewed & are unremarkable except as noted in HPI and below PMFSH Past Medical History Medical History Colon cancer COLON CA DX 8/18/20 Mass of left axilla Family History Family History Father Hypertension Social History Social History Smoking packs per day: 1 Smoking cigarettes per day: 20.0 Years smoked: 8 Smoking pack-years: 8.00 Smoking status: Former smoker Tobacco type: cigarettes Second hand tobacco smoke exposure: No Smoking end date: 09/15/74 Alcohol intake: never Substance use: never Gender identity (if verbalized by the patient): Male Spiritual care concerns: No Meds Home Medications and Allergies Home Medications Medication Instructions Recorded Confirmed Type oxycodone-acetaminophen [Percocet] 1 tablet PO Q4H PRN #30 tablet 05/09/20 07/21/20 Rx megestrol [Megace] 200 mg PO BID 06/30/20 07/21/20 History Allergies Allergy/AdvReac Type Severity Reaction Status Date / Time No Known Allergies Allergy Verified 07/14/20 13:47 Vital Signs Vital Signs - 24 hr 08/15/20 15:41 08/15/20 15:49 08/15/20 16:23 Temperature Pulse Rate 104 H 103 H 108 H Respiratory Rate 32 H 23 H 34 H Blood Pressure 50/42 L 89/56 L 112/79 Pulse Oximetry 76 L 96 98 08/15/20 16:48 08/15/20 17:21 08/15/20 18:00 Temperature Pulse Rate 103 H 106 H 106 H Respiratory Rate 21 H 21 H 14 Blood Pressure 120/95 H 95/54 L 106/66 Pulse Oximetry 93 98 100 08/15/20 18:08 08/15/20 18:15 08/15/20 18:16 Temperature Pulse Rate 109 H 104 H 109 H Respiratory Rate 18 18 22 H Blood Pressure 124/82 Pulse Oximetry 100 100 100 08/15/20
--- NOTE | 2020-08-15 22:08 | P.OP_ITS ---
Procedure Note - Detailed Date of procedure: 08/15/20 Pre-op diagnosis: PAIN EVERYWHERE CANCER PT bilateral ureteral stones with acute renal failure Post-op diagnosis: other (bilateral ureteral stones with acute renal failure and urethral trauma) Procedure performed: cystoscopy with bilateral ureteral stents and bilateral retrograde pyelograms complex villegas catheter placement cystogram Description of procedure: Patient brought back into to operating room. He received conscious sedation. SCDs were put in place. He received rocefin in the ER so no additional abx given. He was prepped and draped in standard sterile fashion. A timeout was performed. A flexible cystoscopy was used and there were no obvious bladder tumors. There were numerous small bladder stones. There was a bulbar urethral trauma and what appeared to be the beginning of a false urethral passage with bleeding. I placed bentson wires on the R and L up to the kidney. I was unable to advance the 5Fr past the distal ureter. On the right d/t the stone. On the L d/t a tight, narrow ureter. I was able to perform B RPGs that showed R filling defect in distal ureter consistent with stone. There was bilateral hydronephrosis. I was able to carefully place the superstiff wire and eventually gently passed a 4.8 x variable length stent on the right then left. R side urine culture was obtained through 5Fr open ended catheter. Good placement of stents was confirmed with fluoroscopy and assistance of contrast for the proximal coils in the upper poles and bladder. I also directly visualized the distal coils in the bladder. A super stiff wire was then placed and a 16 Fr [place] tip catheter was placed. Balloon filled with 10 ml sterile fluid. I injected 10 ml contrast and confirmed placement of balloon in bladder via cystogram. The procedure was complete. he tolerated well without complications. Implants: bilateral ureteral stents Anesthesia: MAC Surgeon: Taj Hays MD Estimated blood loss (mL): 5 Drains: Yes Pathology: yes (R upper tract urine culture) Complications: No immediate complications Condition: stable Disposition: PACU
[2020-08-15] MEDS: LACTATED RINGERS 1,000 ML 30 ML IV CONT (22:15)
[2020-08-16] VITALS (14 sets, daily range): BP systolic 107–146; BP diastolic 60–71; PULSE 54–106; RESP 16–22; TEMP 35.9–36.8; O2SAT 97–100; BMI 25.6
[2020-08-16] MEDS: FAMOTIDINE 20 MG/2 ML VIAL IV PUSH ×3 (00:37→20:29)
[2020-08-16 00:39] LABS: Lactic Acid 2.3 mmol/L (0.7-2.1)
[2020-08-16 00:54] LABS: Troponin I 0.071 ng/mL (0.000-0.034)
[2020-08-16] MEDS: SODIUM CHLORIDE 0.9% IV 1,000 ML 100 ML IV CONT ×3 (01:01→20:29)
--- NOTE | 2020-08-16 03:02 | PM.IMHP ---
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 The patient's complaint on arrival to the ER was ?I can not breathe.? However, at the time of my evaluation the patient denies any shortness of breath or chest pain. He is resting comfortably on room air. The patient told me that the reason he came to the ER was because he hurt all over. He told the ER staff that he was having pain in his buttocks. He had had a large bowel movement on the morning of the and again upon arrival to the ER. Since that time he has had only a small bowel movement after arriving to the IMU. The patient is alert and oriented to person place and time but is a poor historian regarding his medical history. The patient has received radiation therapy as well as chemotherapy for his cancer. He is now on immunotherapy. The patient denies having any fevers, chills, lightheadedness, confusion,, dysuria or hematuria. Review of Systems Review of Systems: Narrative: 12 systems were reviewed with pertinent positives and negatives per HPI. Except as documented in the HPI, all other systems were reviewed and are negative. However limited as the patient is a poor historian. [facility] Past Medical History Medical History (Updated 08/16/20 @ 03:42 by Annelise Pa DO) Malignant melanoma Diagnosed April 2020 with masses in the lungs, right adrenal gland and at the junction of the descending and sigmoid colon and in the subcutaneous and retroperitoneal fat Megaloblastic anemia due to decreased intake of vitamin B12 Surgical History Surgical History (Updated 08/16/20 @ 03:23 by Annelise Pa DO) Port-A-Cath in place May 24, 2020 Family History Family History Father Hypertension Social History Social History (Updated 08/16/20 @ 03:26 by Annelise Pa DO) Social History: [place] with his of 43 years. 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 He denies any alcohol use or illicit substance use. He has 2 sons who are reportedly in good health. Primary care physician: Dr. Talib Dietrich oncologist Dr. Burkett Code status: Full code Smoking packs per day: 1 Smoking cigarettes per day: 20.0 Years smoked: 8 Smoking pack-years: 8.00 Smoking status: Former smoker Tobacco type: cigarettes Second hand tobacco smoke exposure: No Smoking end date: 09/15/74 Alcohol intake: former Substance use: never Gender identity (if verbalized by the patient): Male Spiritual care concerns: No Meds Home Medications and Allergies Home Medications Medication Instructions Recorded Confirmed Type No Home Medications 08/16/20 08/16/20 History Allergies Allergy/AdvReac Type Severity Reaction Status Date / Time No Known Allergies Allergy Verified 07/14/20 13:47 Vital Signs Vital Signs - 24 hr 08/15/20 15:41 08/15/20 15:49 08/15/20 16:23 Temperature Pulse Rate 104 H 103 H 108 H Respiratory Rate 32 H 23 H 34 H Blood Pressure 50/42 L 89/56 L 112/79 Pulse Oximetry 76 L 96 98 08/15/20 16:48 08/15/20 17:21 08/15/20 18:00 Temperature Pulse Rate 103 H 106 H 106 H Respiratory Rate 21 H 21 H 14 Blood Pressure 120/95 H 95/54 L 106/66 Pulse Oximetry 93 98 100 08/15/20 18:08 08/15/20 18:15 08/15/20 18:16 Temperature Pulse Rate 109 H 104 H 109 H Respiratory Rate 18 18 22 H Blood Pressure 124/82 Pulse Oximetry 100 100 100 08/15/20 18:35 08/15/20 18:36 08/15/20 18:47 Temperature Pulse Rate 110 H 109 H 109 H Respiratory Rate 15 22 H 18 Blood Pressure 130/97 H Pulse Oximetry 100 100 100 08/15/20 19:08 08/15/20 20:15 08/15/20 21:04 Temperature 98.2 F Pulse Rate 98 101 H 88
[2020-08-16 03:09] LABS: Hematocrit 24.8 % (42.0-52.0); Hemoglobin 7.7 g/dL (14.0-18.0); Mean Corpuscular Hemoglobin 26.6 pg (26-34); Mean Corpuscular Volume 85.5 fl (80-100); Mean Platelet Volume 8.8 fl (7.4-10.4); Platelet Count Result 105 k/mm3 (150-375); Red Cell Distribution Width 19.6 % (11.5-14.5); White Blood Count 5.6 K/mm3 (4.5-10.0)
[2020-08-16 03:25] LABS: Anion Gap 11 mmol/L (8-16); Blood Urea Nitrogen 60 mg/dL (9-20); Calcium 7.4 mg/dL (8.4-10.2); Carbon Dioxide 20 mmol/L (22-30); Chloride 99 mmol/L (98-107); Estimated CRCL calculation 28 ml/min; Estimated Glomerular Filt Rate 30; Glucose 91 mg/dL (75-110); Lactic Acid Reflex 1.2 mmol/L (0.7-2.1); Potassium 4.4 mmol/L (3.4-5.0); Sodium 130 mmol/L (137-145)
[2020-08-16 03:53] LABS: Troponin I 0.066 ng/mL (0.000-0.034)
--- NOTE | 2020-08-16 09:51 | WPDUROPN2 ---
Progress Note: A&P Assessment and Plan (1) Sepsis: Code(s): A41.9 - Sepsis, unspecified organism Status: Acute Assessment and Plan: Patient's pain is under good control, creatinine has improved from 2.6 to 2.20. Will plan to continue monitoring until culture comes back. (2) Urinary tract infection: Code(s): N39.0 - Urinary tract infection, site not specified Status: Acute Assessment and Plan: Continue IV antibiotics, tailor to urine culture results. (3) Bilateral ureteral calculi: Code(s): N20.1 - Calculus of ureter Status: Acute Assessment and Plan: Stents in place, will stay in until infection is cleared. Left ESWL (if stone is visible on KUB) otherwise left ureteral stone extracation, Cystoscopy, right ureteroscopy with stone extraction, bilateral retrograde pyelogram, possible holmium laser, replacement of bilateral stents. Will order a KUB for surgical planning. Subjective Subjective Date/Time Seen: 08/16/20 09:51 S/P Cystoscopy, Bilateral Stent placement, bilateral retrograde pyelogram, complex villegas placement. Review of Systems Cardiovascular: Cardiovascular: Denies chest pain Respiratory: Respiratory: Reports no additional respiratory complaints Gastrointestinal: Gastrointestinal: Denies abdominal pain, Denies nausea and Denies vomiting Genitourinary: Genitourinary: Reports hematuria and Denies flank pain Exam Resp: Effort & Inspection: normal respiratory effort Cardio: Rate: regular rate GI: GI Palp: Yes Soft to palpation and No Tenderness to palpation present (GI) Urinary Catheter: Urinary Catheter: patent and draining, urine clear and urine pink Extrem: General: no edema Objective Data Vital Signs Vital Signs: Vital Signs - 24 hr 08/15/20 15:41 08/15/20 15:49 08/15/20 16:23 Temperature Pulse Rate 104 H 103 H 108 H Respiratory Rate 32 H 23 H 34 H Blood Pressure 50/42 L 89/56 L 112/79 Pulse Oximetry 76 L 96 98 08/15/20 16:48 08/15/20 17:21 08/15/20 18:00 Temperature Pulse Rate 103 H 106 H 106 H Respiratory Rate 21 H 21 H 14 Blood Pressure 120/95 H 95/54 L 106/66 Pulse Oximetry 93 98 100 08/15/20 18:08 08/15/20 18:15 12/01/20 18:16 Temperature Pulse Rate 109 H 104 H 109 H Respiratory Rate 18 18 22 H Blood Pressure 124/82 Pulse Oximetry 100 100 100 08/15/20 18:35 08/15/20 18:36 08/15/20 18:47 Temperature Pulse Rate 110 H 109 H 109 H Respiratory Rate 15 22 H 18 Blood Pressure 130/97 H Pulse Oximetry 100 100 100 08/15/20 19:08 08/15/20 20:15 08/15/20 21:04 Temperature 98.2 F Pulse Rate 98 101 H 88 Respiratory Rate 18 18 19 Blood Pressure 128/88 128/88 Pulse Oximetry 100 100 100 08/15/20 22:15 08/15/20 22:30 08/15/20 22:45 Temperature 97.0 F L Pulse Rate 90 85 95 Respiratory Rate 20 20 18 Blood Pressure 101/68 126/72 126/74 Pulse Oximetry 100 100 100 08/15/20 23:00 08/15/20 23:15 08/16/20 00:00 Temperature 98.0 F Pulse Rate 92 96 106 H Respiratory Rate 18 18 20 Blood Pressure 148/80 H 138/74 146/71 H Pulse Oximetry 100 100 98 08/16/20 02:00 08/16/20 04:00 08/16/20 06:00 Temperature 97.8 F Pulse Rate 93 54 L 89 Respiratory Rate 20 Blood Pressure 119/69 Pulse Oximetry 97 Intake/Output Intake/Output: Intake & Output 08/13/20 08/14/20 08/15/20 08/16/20 23:59 23:59 23:59 23:59 Intake Total 2350 0 Output Total 60 Balance 2290 0 Meds/Results Medications: Active Medications Generic Name Dose Route Start Last Admin Trade Name Freq PRN Reason Stop Dose Admin Dextrose 12.5 gm 08/15/20 20:07 Dextrose 50% 25 Gm/50 Ml Syringe IV PUSH PRN PRN Hypoglycemia Protocol Famotidine 20 mg 08/15/20 21:00 08/16/20 09:00 Famotidine 20 Mg/2 Ml Vial IV PUSH 20 mg Q12HR NATHAN Administration Fentanyl Citrate 25 mcg 08/15/20 20:54 Fentanyl Citrate Inj (*Crx) 100 Mcg/2 Ml Vial IV PUSH Q2M PRN Pain Glucagon
--- NOTE | 2020-08-16 11:18 | WPDANESPN ---
Anes - Prog Note Post-Op Date/Time: 08/16/20 11:18 Cardiovascular status: normal Respiratory status: normal Airway patency: baseline Mental status: baseline Post-Op hydration status: normal Vital Signs: Last Vital Signs Temp 36.6 C 08/16/20 04:00 Pulse 89 08/16/20 06:00 Resp 20 08/16/20 04:00 BP 119/69 08/16/20 04:00 Pulse Ox 97 08/16/20 04:00 Pain Score (VAS): 2 I/O: Intake & Output 08/15/20 08/16/20 08/16/20 23:59 07:59 15:59 Intake Total 2350 0 Output Total 60 Balance 2290 0 Laboratory Tests 08/16/20 03:03 08/16/20 03:03 08/15/20 08/15/20 08/15/20 15:49 17:24 17:24 WBC 14.2 H RBC 3.40 L Hgb 8.9 L Hct 29.2 L MCV 85.9 MCH 26.2 MCHC 30.5 L RDW 19.4 H Plt Count 165 MPV 8.3 Immature Gran % (Auto) 0.8 H Neut % (Auto) 92.8 H Lymph % (Auto) 2.5 L [place] % (Auto) 3.7 Eos % (Auto) 0.0 Baso % (Auto) 0.2 Lymph # (Auto) 0.35 L [place] # (Auto) 0.5 Eos # (Auto) 0.0 Baso # (Auto) 0.0 Abs Immat Gran (auto) 0.12 H Absolute Neuts (auto) 13.1 H Absolute Nucleated RBC 0.0 Nucleated RBC % 0.0 Platelet Estimate Adequate Ovalocytes 1+ PT INR APTT Sodium Potassium Chloride Carbon Dioxide Anion Gap BUN Creatinine Estim Creat Clear Calc Estimated GFR Glucose POC Capillary Glucose 126 H Lactic Acid Calcium Total Bilirubin AST ALT Alkaline Phosphatase Total Creatine Kinase Cancelled Troponin I C-Reactive Protein NT-Pro-B Natriuret Pep Total Protein Albumin Lipase Urine Color Urine Appearance Urine pH Ur Specific [place] Urine Protein Urine Glucose (UA) Urine Ketones Ur Blood (Man) Urine Nitrate Urine Bilirubin Urine Urobilinogen Leukocyte Esterase Rfl Urine RBC Urine WBC Ur Squamous Epith Cells Urine Bacteria Urine Mucus 08/15/20 08/15/20 08/15/20 17:24 17:24 17:24 WBC RBC Hgb Hct MCV MCH MCHC RDW Plt Count MPV Immature Gran % (Auto) Neut % (Auto) Lymph % (Auto) [place] % (Auto) Eos % (Auto) Baso % (Auto) Lymph # (Auto) [place] # (Auto) Eos # (Auto) Baso # (Auto) Abs Immat Gran (auto) Absolute Neuts (auto) Absolute Nucleated RBC Nucleated RBC % Platelet Estimate Ovalocytes PT 17.6 H INR 1.4 APTT 34.4 Sodium 129 L Potassium 4.6 Chloride 98 Carbon Dioxide 18 L Anion Gap 13 BUN 56 H Creatinine 2.60 H Estim Creat Clear Calc Not Reportable Estimated GFR 25 L Glucose 126 H POC Capillary Glucose Lactic Acid 5.3 H* Calcium 7.7 L Total Bilirubin 1.2 AST 26 ALT 15 Alkaline Phosphatase 89 Total Creatine Kinase 60 Troponin I 0.072 H* C-Reactive Protein 17.3 H NT-Pro-B Natriuret Pep 5640 H Total Protein 5.0 L Albumin 2.6 L Lipase 78 Urine Color Urine Appearance Urine pH Ur Specific [place] Urine Protein Urine Glucose (UA) Urine Ketones Ur Blood (Man) Urine Nitrate Urine Bilirubin Urine Urobilinogen Leukocyte Esterase Rfl Urine RBC Urine WBC Ur Squamous Epith Cells Urine Bacteria Urine Mucus 08/15/20 08/15/20 08/15/20 17:24 19:28 23:54 WBC RBC Hgb Hct MCV MCH MCHC RDW Plt Count MPV Immature Gran % (Auto) Neut % (Auto) Lymph % (Auto) [place] % (Auto) Eos % (Auto) Baso % (Auto) Lymph # (Auto) [place] # (Auto) Eos # (Auto) Baso # (Auto) Abs Immat Gran (auto) Absolute Neuts (auto) Absolute Nucleated RBC Nucleated RBC % Platelet Estimate Ovalocytes PT INR APTT Sodium Potassium Chloride Carbon Dioxide Anion Gap BUN Creatinine Estim Creat Clear Calc Estimated GFR Glucose POC Capillary Glucose
--- NOTE | 2020-08-16 17:52 | PDONCCN ---
[facility] - Date of Consult Date/Time: 08/16/20 17:52 Requesting Physician: Taj Hays MD Primary Care Provider: [employer]PER[employer]OR PHYSICIAN - Consult Narrative Reason for consult: Metastatic melanoma Narrative: Germain Hays is a 69 year old male was diagnosed to have metastatic melanoma status post ultrasound-guided left axillary lymph node biopsy done on May 24, 2020. He has metastatic involvement of bone liver and lung along with descending colon. He started immunotherapy with ipilimumab and nivolumab and so far had received 3 treatment. He came into the office for follow-up visit. He was experiencing significant musculoskeletal pain especially in the buttock area. He has been losing weight and has been eating poorly. He was looking quite dehydrated. I have offered him admission to the hospital but patient decided to go home. On the way to home patient changes mind and went in to the ER for admission to the hospital. Patient had CT scan abdomen and pelvis done that showed bilateral obstructing nephrolithiasis along with small bilateral pleural effusion and start a small pericardial effusion mixed pattern of improvement and progression of multiple likely metastatic soft tissue masses in lung adrenal gland and descending colon. His labs showed anemia as well as elevated lactic acid and creatinine of 2.6 with BUN of 56. He was started on IV hydration. Today his looks much comfortable and denies any further pain denies any fevers and chills.. Review of Systems - Review of Systems All systems reviewed & are unremarkable except as noted in [facility] and [facility] Medical History: Medical History (Last Updated 08/16/20 @ 03:23 by Annelise Pa DO) Malignant melanoma Diagnosed April 2020 with masses in the lungs, right adrenal gland and at the junction of the descending and sigmoid colon and in the subcutaneous and retroperitoneal fat Megaloblastic anemia due to decreased intake of vitamin B12 Surgical History: Surgical History (Last Updated 08/16/20 @ 03:23 by Annelise Pa DO) Port-A-Cath in place May 24, 2020 Family History: Family History (Last Reviewed 08/16/20 @ 03:24 by Annelise Pa DO) Father Hypertension - Social History Social History: Social History (Last Updated 08/16/20 @ 03:26 by Annelise Pa DO) Gender Identity: Gender identity (if verbalized by the patient): Male Alcohol Use: Alcohol intake: former Substance Use: Substance use: never Others: Spiritual care concerns: No Smoking Status: Smoking status: Former smoker Tobacco type: cigarettes Second hand tobacco smoke exposure: No Smoking end date: 09/15/74 Smoking Pack-years: Smoking packs per day: 1 Smoking cigarettes per day: 20.0 Years smoked: 8 Smoking pack-years: 8.00 Meds Home Medications Medication Instructions Recorded Confirmed Type No Home Medications 08/16/20 08/16/20 History Allergies Allergy/AdvReac Type Severity Reaction Status Date / Time No Known Allergies Allergy Verified 07/14/20 13:47 Results - Labs CBC & Chem 7: 08/16/20 03:03 08/16/20 03:03 Labs: Short CBC 08/16/20 Range/Units 03:03 WBC 5.6 (4.5-10.0) K/mm3 Hgb 7.7 L (14.0-18.0) g/dL Hct 24.8 L (42.0-52.0) % Plt Count 105 L (150-375) k/mm3 BMP 08/15/20 08/16/20 17:24 03:03 Sodium 129 L 130 L Potassium 4.6 4.4 Chloride 98 99 Carbon Dioxide 18 L 20 L BUN 56 H 60 H Creatinine 2.60 H 2.20 H Glucose 126 H 91 Calcium 7.7 L 7.4 L Cardiac Enzymes 08/15/20 08/15/20 08/16/20 Range/Units 17:24 23:54 03:03 Total Creatine Kinase 60 (55-170) U/L Troponin I 0.072 H* 0.071 H* 0.066 H* (0.000-0.034) ng/mL Liver Function 08/15/20 Range/Units 17:24 Total Bilirubin 1.2 (0.2-1.3) mg/dL AST 26 (17-59) U/L ALT 15 (4-50) U/L Alkaline Phosphatase 89 (38-126) U/L Albumin
[2020-08-16] MEDS: FUROSEMIDE 20 MG TABLET PO (18:03)
[2020-08-17] VITALS (16 sets, daily range): BP systolic 96–146; BP diastolic 64–76; PULSE 52–104; RESP 12–20; TEMP 35.8–36.6; O2SAT 95–100
[2020-08-17] MEDS: SODIUM CHLORIDE 0.9% IV 1,000 ML 100 ML IV CONT ×2 (05:29→17:54)
[2020-08-17 05:55] LABS: Hematocrit 21.1 % (42.0-52.0); Mean Corpuscular HGB Conc 29.9 g/dl (32-36); Mean Corpuscular Hemoglobin 26.3 pg (26-34); Mean Corpuscular Volume 87.9 fl (80-100); Mean Platelet Volume 8.5 fl (7.4-10.4); Platelet Count Result 89 k/mm3 (150-375); Red Cell Distribution Width 19.7 % (11.5-14.5)
[2020-08-17 06:17] LABS: Hemoglobin 6.3 g/dL (14.0-18.0)
[2020-08-17 06:22] LABS: Anion Gap 8 mmol/L (8-16); Blood Urea Nitrogen 46 mg/dL (9-20); Calcium 6.2 mg/dL (8.4-10.2); Carbon Dioxide 16 mmol/L (22-30); Chloride 109 mmol/L (98-107); Estimated CRCL calculation 47 ml/min; Estimated Glomerular Filt Rate 55; Glucose 70 mg/dL (75-110); Potassium 3.3 mmol/L (3.4-5.0); Sodium 133 mmol/L (137-145)
--- NOTE | 2020-08-17 08:47 | WPDUROPN2 ---
Progress Note: A&P Assessment and Plan (1) Bilateral ureteral calculi: Code(s): N20.1 - Calculus of ureter Status: Acute Assessment and Plan: Bilateral stents in place, will plan to remove stones when infection is clear in a few weeks. Patient is not having stent pain and doing well. (2) Septic shock: Code(s): A41.9 - Sepsis, unspecified organism; R65.21 - Severe sepsis with septic shock Status: Acute Assessment and Plan: Appreciate Hospitalist input. Seems to be improving with IV fluids, pain management of metastatic melanoma is improved as well. (3) Urinary tract infection: Code(s): N39.0 - Urinary tract infection, site not specified Status: Acute Assessment and Plan: Continue IV antibioitcs, tailor to culture results. Subjective Subjective Date/Time Seen: 08/17/20 08:47 POD #2 Cystoscopy, Bilateral Stent placement, bilateral retrograde pyelogram, complex villegas placement. Review of Systems Cardiovascular: Cardiovascular: Denies chest pain Respiratory: Respiratory: Reports no additional respiratory complaints Gastrointestinal: Gastrointestinal: Denies abdominal pain, Denies nausea and Denies vomiting Exam Resp: Effort & Inspection: normal respiratory effort Cardio: Rate: regular rate GI: GI Palp: Yes Soft to palpation and No Tenderness to palpation present (GI) Urinary Catheter: Urinary Catheter: patent and draining, urine cloudy and urine dark Extrem: General: no edema Objective Data Vital Signs Vital Signs: Vital Signs - 24 hr 08/16/20 10:00 08/16/20 12:00 08/16/20 14:00 Temperature 96.9 F L Pulse Rate 95 91 86 Respiratory Rate 22 H Blood Pressure 126/67 Pulse Oximetry 99 08/16/20 14:50 08/16/20 16:00 08/16/20 17:15 Temperature 98.3 F 98 F 97.7 F Pulse Rate 100 91 84 Respiratory Rate 18 16 20 Blood Pressure 107/65 113/63 122/60 Pulse Oximetry 100 100 99 08/16/20 18:00 08/16/20 20:00 08/16/20 22:00 Temperature 96.6 F L Pulse Rate 95 98 98 Respiratory Rate 18 Blood Pressure 113/63 Pulse Oximetry 99 08/17/20 00:00 08/17/20 02:00 08/17/20 04:00 Temperature 97.9 F 96.8 F L Pulse Rate 94 96 98 Respiratory Rate 20 16 Blood Pressure 119/65 114/64 Pulse Oximetry 98 100 08/17/20 05:54 08/17/20 08:00 Temperature 97.3 F L Pulse Rate 93 52 L Respiratory Rate 12 Blood Pressure 113/71 Pulse Oximetry 95 Intake/Output Intake/Output: Intake & Output 08/14/20 08/15/20 08/16/20 08/17/20 23:59 23:59 23:59 23:59 Intake Total 2350 2410 1700 Output Total 60 5150 600 Balance 2290 -2740 1100 Meds/Results Medications: Active Medications Generic Name Dose Route Start Last Admin Trade Name Freq PRN Reason Stop Dose Admin Dextrose 12.5 gm 08/15/20 20:07 Dextrose 50% 25 Gm/50 Ml Syringe IV PUSH PRN PRN Hypoglycemia Protocol Famotidine 20 mg 08/15/20 21:00 08/16/20 20:29 Famotidine 20 Mg/2 Ml Vial IV PUSH 20 mg Q12HR NATHAN Administration Fentanyl Citrate 25 mcg 08/15/20 20:54 Fentanyl Citrate Inj (*Crx) 100 Mcg/2 Ml Vial IV PUSH Q2M PRN Pain Furosemide 20 mg 08/16/20 17:00 08/16/20 18:03 Furosemide 20 Mg Tablet PO 20 mg BID NATHAN Administration Glucagon 1 mg 08/15/20 20:07 Glucagon For Inj 1 Mg Vial IM PRN PRN Hypoglycemia Protocol Glucose 15 gm 08/15/20 20:07 Glucose Oral Gel 15 Gm Of Glucse In 37.5 Gm Tube PO PRN PRN Hypoglycemia Protocol Dextrose 1,000 mls @ 100 mls/hr 08/15/20 20:07 Dextrose 5% 1,000 Ml IVPB PRN PRN Hypoglycemia Protocol Ceftriaxone Sodium/Dextrose 1 gm in 50 mls @ 100 mls/hr 08/16/20 19:00 08/16/20 19:50 Rocephin 1 Gm/D5w 50 Ml IVPB Infused Q24H NATHAN Infusion Sodium Chloride 1,000 mls @ 100 mls/hr 08/16/20 00:45 08/17/20 05:29 Normal Saline Iv IV CONT 100 mls/hr .Q10H NATHAN Administration Sodium Chloride 250 mls @ 30 mls/hr
[2020-08-17] MEDS: FAMOTIDINE 20 MG/2 ML VIAL IV PUSH ×2 (09:27→20:11)
[2020-08-17] MEDS: SODIUM CHLORIDE 0.9% IV 250 ML 30 ML IV CONT (09:30)
[2020-08-17] MEDS: TUBING, BLOOD PLUM PUMP TUBING 1 EACH XX (09:30)
[2020-08-17] MEDS: ONDANSETRON INJ 4 MG/2 ML VIAL IV PUSH (09:37)
[2020-08-17] MEDS: FUROSEMIDE 20 MG TABLET PO ×2 (10:31→17:50)
[2020-08-17] MEDS: CENTRAL LINE FLUSH 10 ML IV PUSH ×2 (13:00→20:11)
--- NOTE | 2020-08-17 15:01 | PM.IMPN ---
Progress Note: A&P Assessment and Plan (1) Septic shock: Code(s): A41.9 - Sepsis, unspecified organism; R65.21 - Severe sepsis with septic shock Status: Acute Assessment and Plan: improving after procedure, urology and oncology rounding, wcc is 5. (2) Acute kidney injury: Code(s): N17.9 - Acute kidney failure, unspecified Status: Acute Assessment and Plan: Patient underwent cystoscopy with bilateral stent placement in tolerated procedure well. Creat is 1.3. Continue iv fluids and IV rocephin, BC and UC are pending Pt has catheter in situ urine is dark in coor (3) Elevated troponin: Code(s): R77.8 - Other specified abnormalities of plasma proteins Status: Acute Assessment and Plan: Troponin profile is completely flat. No evidence of acute myocardial ischemia. (4) Anemia: Qualifiers: Anemia type: unspecified type Qualified Code(s): D64.9 - Anemia, unspecified Code(s): D64.9 - Anemia, unspecified Status: Acute Assessment and Plan: Hb is 6.3 pt is receiving blood will recheck after blood transfusion Subjective Date/time seen: 08/17/20 15:01 Interval history: 69 year old male with a past medical history of widely metastatic melanoma diagnosis May 2020 who presented to the ER from oncology office due to pain in altered mental status. He has been found to have B ureteral stone, 5 mm L proximal and 6 mm R distal, with bilateral kidney stones and hydronephrosis. pt admitted for hydronephrosis and sepsis. Pt appears to be more oriented today, getting better Review of Systems Review of Systems: All systems reviewed & are unremarkable except as noted in HPI and below Exam Narrative: Exam Narrative: PHYSICAL EXAM: WEIGHT 76.1 kg BMI 25.5 General: Chronically ill-appearing, no acute distress, appears older than stated age HEENT: Mucous membranes are dry, poor dentition with multiple missing teeth, head is normocephalic, temporal wasting, conjunctival pallor, no scleral icterus Respiratory: Clear to auscultation bilaterally, no increased work of breathing Cardiovascular: Regular rate, no murmurs, 2+ bilateral radial and pedal pulses, Port-A-Cath in the right upper chest Gastrointestinal: Distended, nontender, anasarca Skin: Generalized pallor, non jaundice Musculoskeletal: 2+ pitting edema of bilateral lower extremities, no clubbing, nail beds are cool appear slightly cyanotic Neurological: Alert and oriented x3, speech is intermittently slurred and slow, no laura facial asymmetry however difficult to assess due to patient's facial hair Psychiatric: Cooperative with flat affect : Matt catheter in place with dark urine small amount Hematologic/lymphatic: Left axillary lymphadenopathy, no petechiae, no bruising Const: General: other (chronically ill appearing port a cath in situ ) Orientation/consciousness: oriented to person HENMT: Head: normal to inspection Resp: Effort & Inspection: no respiratory distress Auscultation: no rhonchi and no wheezes Cardio: Rate: regular rate Rhythm: regular rhythm GI: Inspection: normal to inspection GI Palp: No abdominal tenderness, No Guarding due to palpation present (GI) and No Hepatomegaly present Auscultation: normal bowel sounds Neuro: General: oriented to person Objective Data Vital Signs Vital Signs: Vital Signs - 24 hr 08/16/20 16:00 08/16/20 17:15 08/16/20 18:00 Temperature 36.6 C 36.5 C Pulse Rate 91 84 95 Respiratory Rate 16 20 Blood Pressure 113/63 122/60 Pulse Oximetry 100 99 08/16/20 20:00 08/16/20 22:00 08/17/20 00:00 Temperature 35.9 C L 36.6 C Pulse Rate 98 98 94 Respiratory Rate 18 20 Blood Pressure 113/63 119/65 Pulse Oximetry 99 98 08/17/20 02:00 08/17/20 04:00 08/17/20 05:54 Temperature 36.0 C L Pulse Rate 96 98 93 Respiratory Rate 16 Blood Pressure 114/64 Pulse Oximetry 100 08/17/20 08:00 08/17/20 09:24 08/17/20 09:40
[2020-08-17 16:11] LABS: Hematocrit 32.1 % (42.0-52.0); Hemoglobin 10.3 g/dL (14.0-18.0)
[2020-08-18] VITALS (15 sets, daily range): BP systolic 104–189; BP diastolic 57–89; PULSE 85–108; RESP 18–22; TEMP 35.6–36.9; O2SAT 96–100
[2020-08-18 04:55] LABS: Hematocrit 33.2 % (42.0-52.0); Hemoglobin 10.5 g/dL (14.0-18.0); Mean Corpuscular HGB Conc 31.6 g/dl (32-36); Mean Corpuscular Hemoglobin 27.3 pg (26-34); Mean Corpuscular Volume 86.5 fl (80-100); Mean Platelet Volume 8.3 fl (7.4-10.4); Platelet Count Result 86 k/mm3 (150-375); Red Blood Count 3.84 M/mm3 (4.6-6.20); Red Cell Distribution Width 17.8 % (11.5-14.5); White Blood Count 6.6 K/mm3 (4.5-10.0)
[2020-08-18 05:07] LABS: Anion Gap 9 mmol/L (8-16); Blood Urea Nitrogen 42 mg/dL (9-20); Calcium 6.7 mg/dL (8.4-10.2); Carbon Dioxide 18 mmol/L (22-30); Chloride 102 mmol/L (98-107); Estimated CRCL calculation 55 ml/min; Estimated Glomerular Filt Rate > 60; Glucose 76 mg/dL (75-110); Potassium 3.3 mmol/L (3.4-5.0); Sodium 129 mmol/L (137-145)
[2020-08-18] MEDS: SODIUM CHLORIDE 0.9% IV 1,000 ML 100 ML IV CONT ×2 (05:20→15:45)
[2020-08-18] MEDS: CENTRAL LINE FLUSH 10 ML IV PUSH ×3 (05:20→21:37)
--- NOTE | 2020-08-18 09:34 | WPDUROPN2 ---
Progress Note: A&P Assessment and Plan (1) Bilateral ureteral calculi: Code(s): N20.1 - Calculus of ureter Status: Acute Assessment and Plan: Will obtain a repeat CT/KUB to determine stone placement for definitive stone management/stone management. Bilateral stents in place. (2) Acute kidney injury: Code(s): N17.9 - Acute kidney failure, unspecified Status: Acute Assessment and Plan: Creatinine 1.10 at this time, it is has improved since stent placement. (3) Urinary tract infection: Code(s): N39.0 - Urinary tract infection, site not specified Status: Acute Assessment and Plan: Urine culture negative, he denies antibiotics prior to hospitalization. (4) Bladder spasms: Code(s): N32.89 - Other specified disorders of bladder Status: Acute Assessment and Plan: Patient c/o bladder spasms, from stent versus catheter, he refuses to have the catheter removed, he thinks it is helpful d/t his incontinence and would like to keep it. Start Oxybutynin. Subjective Subjective Date/Time Seen: 08/18/20 09:34 POD #3 Cystoscopy, Bilateral Stent placement, bilateral retrograde pyelogram, complex villegas placement. Patient remains in pain all over. He has no appetite, scotal burning, stool incontinence and skin tears. Review of Systems Cardiovascular: Cardiovascular: Denies chest pain Respiratory: Respiratory: Reports no additional respiratory complaints Gastrointestinal: Gastrointestinal: Reports abdominal pain, Denies nausea and Denies vomiting Genitourinary: Genitourinary: Denies hematuria and Reports flank pain Exam Resp: Effort & Inspection: normal respiratory effort Cardio: Rate: regular rate GI: GI Palp: Yes abdominal tenderness, Yes Soft to palpation and Yes Tenderness to palpation present (GI) Urinary Catheter: Urinary Catheter: patent and draining and urine clear Extrem: General: no edema Objective Data Vital Signs Vital Signs: Vital Signs - 24 hr 08/17/20 09:40 08/17/20 10:00 08/17/20 10:40 Temperature 96.4 F L 96.4 F L Pulse Rate 99 104 H 95 Respiratory Rate 16 16 Blood Pressure 111/76 96/65 L Pulse Oximetry 99 100 08/17/20 11:55 08/17/20 12:00 08/17/20 14:00 Temperature 96.4 F L 97.4 F L Pulse Rate 99 97 90 Respiratory Rate 16 12 Blood Pressure 109/68 126/68 Pulse Oximetry 100 100 08/17/20 16:00 08/17/20 18:00 08/17/20 20:00 Temperature 97.7 F 97 F L Pulse Rate 100 97 96 Respiratory Rate 12 18 Blood Pressure 108/65 146/71 H Pulse Oximetry 100 99 08/17/20 22:00 08/18/20 00:00 08/18/20 02:00 Temperature 97 F L Pulse Rate 95 97 88 Respiratory Rate 18 Blood Pressure 179/80 H Pulse Oximetry 98 08/18/20 04:00 08/18/20 06:00 08/18/20 08:00 Temperature 97 F L 96.7 F L Pulse Rate 90 85 94 Respiratory Rate 18 18 Blood Pressure 140/62 104/57 L Pulse Oximetry 99 99 Intake/Output Intake/Output: Intake & Output 08/15/20 08/16/20 08/17/20 08/18/20 23:59 23:59 23:59 23:59 Intake Total 2350 2410 3120 1200 Output Total 60 5150 950 350 Balance 2290 -2740 2170 850 Meds/Results Medications: Active Medications Generic Name Dose Route Start Last Admin Trade Name Freq PRN Reason Stop Dose Admin Dextrose 12.5 gm 08/15/20 20:07 Dextrose 50% 25 Gm/50 Ml Syringe IV PUSH PRN PRN Hypoglycemia Protocol Famotidine 20 mg 08/15/20 21:00 08/17/20 20:11 Famotidine 20 Mg/2 Ml Vial IV PUSH 20 mg Q12HR NATHAN Administration Fentanyl Citrate 25 mcg 08/15/20 20:54 Fentanyl Citrate Inj (*Crx) 100 Mcg/2 Ml Vial IV PUSH Q2M PRN Pain Furosemide 20 mg 08/16/20 17:00 08/17/20 17:50 Furosemide 20 Mg Tablet PO 20 mg BID NATHAN Administration Glucagon 1 mg 08/15/20 20:07 Glucagon For Inj 1 Mg Vial IM PRN PRN Hypoglycemia Protocol Glucose 15 gm 08/15/20 20:07 Glucose Oral Gel 15 Gm Of Glucse In 37.5 Gm Tube PO PRN ID
--- NOTE | 2020-08-18 11:29 | PCDIET ---
Nutrition Follow-Up Complete: Nutrition Diagnosis: Involuntary weight loss related to metastatic cancer as evidenced by reported decreased intake and weight loss and documented weight loss of 8.9% x 3 months which is significant. Nutrition Goal: Patient to consume 75% of meals/supplements or greater and maintain weight. Goal not met. Patient eating minimally on regular diet and taking primarily Frozen Nutritional Treat and bites of ice cream. If aggressive nutritional therapy is desired, recommend enteral feeding. Jevity 1.5 at goal of 65mL/hr x 22 hours/day would provide 2145kcal, 91g protein and 1086mL free water. Suggest 30mL water flush every 4 hours while IV fluids infusing. Last recorded weight is 72.4 kg which is down from last review. Bowel Motility: Last documented BM on 08/17/20. Labs Reviewed: Hgb (10.5), Hct (33.2), BUN (42), K (3.3), Na (129), Ca (6.7) Meds Noted: Rocephin, Pepcid, Fentanyl, KCl, Lasix Additional Notes: No albumin available for calcium correction. Recommend replacing calcium, if medically appropriate. Integumentary notes reviewed with documented skin tears and ecchymosis. Will follow closely with same goal. Nutrition Monitoring and Evaluation: Follow up every 3 days.
[2020-08-18] MEDS: POTASSIUM CHLORIDE 20 MEQ PACKET (FOR LIQUID) 40 MEQ PO (11:45)
[2020-08-18] MEDS: TOLNAFTATE 1% POWDER 45 GM BTL 1 APPLIC TOPICAL ×2 (11:45→21:37)
[2020-08-18] MEDS: FAMOTIDINE 20 MG/2 ML VIAL IV PUSH ×2 (11:46→21:37)
[2020-08-18] MEDS: FUROSEMIDE 20 MG TABLET PO ×2 (12:06→16:05)
--- NOTE | 2020-08-18 15:08 | PM.IMPN ---
Progress Note: A&P Assessment and Plan (1) Septic shock: Code(s): A41.9 - Sepsis, unspecified organism; R65.21 - Severe sepsis with septic shock Status: Acute Assessment and Plan: improving after procedure, urology and oncology rounding. (2) Acute kidney injury: Code(s): N17.9 - Acute kidney failure, unspecified Status: Acute Assessment and Plan: Patient underwent cystoscopy with bilateral stent placement in tolerated procedure well. Creat is 1.3. Continue iv fluids and IV rocephin, UC is negative Pt has catheter in situ urine is dark in color (3) Elevated troponin: Code(s): R77.8 - Other specified abnormalities of plasma proteins Status: Acute Assessment and Plan: Troponin profile is completely flat. No evidence of acute myocardial ischemia. 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 Diarrhea likely secondary to IV ABX can stop IV abx, try imodium ? rectal tube if necessary Pain control for stage 4 colon cancer Symptomatic control for Ca Pt is sp paracentesis on 08/16/2020 PT/OT Ensures keep fluids as pt is not eating much, failure to thrive, dietary consult made. Pt is a full code I will discuss with family about hospice or DNR status. CT abdo / pelvis shows -1. 2 mm stone in distal right ureter. Bilateral internal ureteral stents in expected positions. 2. Bilateral kidney stones. 3. Lung nodules and mass, right adrenal mass, intra-abdominal and body wall masses, and right thigh mass, consistent with metastatic disease. 4. Small pleural effusions, new from 05/09/20. 5. Large volume of ascites, new from 05/09/20. 6. Cholelithiasis. Gallbladder distention may be secondary to fasting. Correlate with physical exam to exclude acute cholecystitis. CT Chest- 1. 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 Recommend correlation with biopsy. 2: Splenomegaly. 3: Cholelithiasis. Subjective Date/time seen: 08/18/20 15:08 Interval history: 69 year old male with a past medical history of widely metastatic melanoma diagnosis May 2020 who presented to the ER from oncology office due to pain in altered mental status. He has been found to have B ureteral stone, 5 mm L proximal and 6 mm R distal, with bilateral kidney stones and hydronephrosis. pt admitted for hydronephrosis and sepsis. Pt is having alot of diarrhea today and is not eating much. nurse reports pain but patient denies it. Pt looks depressed explained to him about his conditions. Review of Systems Review of Systems: All systems reviewed & are unremarkable except as noted in HPI and below Exam Const: General: other (chronically ill appearing port a cath in situ ) Orientation/consciousness: oriented to person HENMT: Head: normal to inspection Resp: Effort & Inspection: no respiratory distress Auscultation: no rhonchi and no wheezes Cardio: Rate: regular rate Rhythm: regular rhythm GI: Inspection: normal to inspection Auscultation: normal bowel sounds Neuro: General: oriented to person Objective Data Vital Signs Vital Signs: Vital Signs - 24 hr 08/17/20 16:00 08/17/20 18:00 08/17/20 20:00 Temperature 36.5 C 36.1 C L Pulse Rate 100 97 96 Respiratory Rate 12 18 Blood Pressure 108/65 146/71 H Pulse Oximetry 100 99 08/17/20 22:00 08/18/20 00:00 08/18/20 02:00 Temperature 36.1 C L Pulse Rate 95 97 88 Respiratory Rate 18 Blood Pressure 179/80 H Pulse Oximetry 98 08/18/20 04:00 08/18/20 06:00 08/18/20 08:00 Temperature 36.1 C L 35.9 C L
[2020-08-18] MEDS: LIDOCAINE 5% PATCH 1 PATCH TRANSDERM (16:00)
--- NOTE | 2020-08-18 18:52 | WPDONCPN ---
Progress Note: A/P - Additional Plan 1. Metastatic melanoma. s/p 3 cycles of nivolumab/ipilimumab, completed RT to left axilla a month ago - mass decreasing in size. CT A/P showed mixed treatment response. Per Dr. Burkett, recommend continued immunotherapy or hospice. Patient and would like to proceed with cycle 4 of treatment after discharge then SA nivolumab to follow if appropriate. 2. Anorexia and weight loss. Not improving on Megace. GI consulted per hospitalist for PEG tube placement. 3. Kidney stones and bilateral hydronephrosis. s/p bilat stent placement. Matt in place. Urology following. 4. Acute renal insufficiency. Resolved. 5. Anemia. Hgb jake 6.3, s/p 1 unit of PRBC. Now at baseline in 10 range. Continue to trend. - Time Spent With Patient Total time spent is greater than 50% in coordination of care (as documented) at patient's floor/unit and/or counseling patient: 15 - 25 minutes Subjective Interval history: 69 year old WM well known to Dr. Burkett, currently receiving treatment for metastatic melanoma on nivolumab/ipilimumab and was admitted shortly after his last office visit on 08/15 for AMS and pain. He presented with significant hypotension and responded to aggressive IV hydration. Workup revealed mixed treatment response based on CT compared to 08/15 and 05/09 with stable to improved disease in the right adrenal and left lung, with both slight regression and slight increase in size of retroperitoneal nodules; a partially visualized right thigh mass; and increase in size of a mass at the junction of the descending and sigmoid colon and in known peritoneal masses; and large volume ascites. Of note, he underwent paracentesis on 08/16 in which 4600 mL was removed, pathology pending. Additionally, multiple kidney stones were noted bilaterally with associated mild bilateral hydronephrosis requiring bilateral ureteral stents and ISAIAS (Cr 2.6). He has Matt draining tea-colored urine. His creatinine has normalized and currently 1.1. He became more anemic, from 8.9 on admission to 6.3 yesterday and required 1 unit of PRBC with improvement in Hgb to 10.5 currently. Currently, he is resting comfortably but having diarrhea and intermittent bladder spasms. Empiric Rocephin was discontinued given negative urine culture. I spoke to his via phone while in the room at his request. He still has notable anorexia despite Megace and PEG placement is being considered. Review of Systems - Review of Systems All systems reviewed & are unremarkable except as noted in HPI and bel Exam Vital signs: Temp Pulse Resp BP Pulse Ox 35.9 C L 99 18 176/77 H 100 08/18/20 15:51 08/18/20 18:00 08/18/20 15:51 08/18/20 15:51 08/18/20 15:51 - Constitutional no acute distress - Routine HEENT Exam Eye: Present: EOMI (Mild temporal wasting) ENT: Present: mucous membranes dry - Routine Neck Exam Present: normal inspection. Absent: lymphadenopathy - Routine Chest/Breast/Axilla Exam Axillae: Present: mass (Lt axilla ~ 5 x 5 cm) - Routine Respiratory Exam Present: CTAB. Absent: respiratory distress - Routine Cardiovascular Exam Cardiovascular: Present: RRR - Routine Abdominal Exam Present: normal bowel sounds, soft, tenderness - Routine Exam Comments: Matt catheter in place with tea-colored urine - Routine Extremities Exam Present: normal inspection, pulses intact. Absent: pedal edema, extremity cold to touch - Routine Neurological Exam Present: alert, oriented X3 - Detailed Neurological Exam: Coma Scale Eye Opening: Spontaneous Verbal Response: Orientated Motor Response: Obey commands Glascow Coma Scale Total: 15 - Routine Psychiatric Exam Present: depressed. Absent: normal affect PN: Objective Data - Labs CBC & Chem 7: 08/18/20 04:33 08/18/20 04:33 Labs: Laboratory Results - last 24 hr 08/18/20 08/18/20 04:33 04:33 WBC 6.6 RBC 3.84 L Hgb 10.5 L Hct 33.2 L MC
[2020-08-19] VITALS (7 sets, daily range): BP systolic 127–154; BP diastolic 76–86; PULSE 93–103; RESP 14–18; TEMP 36.1–36.7; O2SAT 93–100; BMI 10.0
[2020-08-19] MEDS: SODIUM CHLORIDE 0.9% IV 1,000 ML 100 ML IV CONT ×3 (01:39→23:20)
[2020-08-19] MEDS: FAMOTIDINE 20 MG/2 ML VIAL IV PUSH ×2 (08:19→20:24)
[2020-08-19] MEDS: FUROSEMIDE 20 MG TABLET PO ×2 (08:22→16:44)
[2020-08-19] MEDS: TOLNAFTATE 1% POWDER 45 GM BTL 1 APPLIC TOPICAL ×2 (08:25→20:24)
[2020-08-19] MEDS: KCL 20 MEQ/SW 100 ML 100 ML 50 MEQ IVPB (09:12)
--- NOTE | 2020-08-19 10:10 | PC.NURSE ---
This patient, Germain Hays, was transferred to [[id number]] on 08/19/20 at 1010. Personal belongings sent with patient. Report given to [ ]. Appropriate documentation sent with patient.
--- NOTE | 2020-08-19 10:11 | PC.NURSE ---
This patient, Germain Hays, was transferred to [[facility] ] on 08/19/20 at 0956. Personal belongings sent with patient. Report given to [Nita ]. Appropriate documentation sent with patient.
--- NOTE | 2020-08-19 10:17 | PC.NURSE ---
This patient, Germain Hays, was received from [facility] on 08/19/20 at 1017. Patient/family oriented to unit policies and routines
[2020-08-19] MEDS: CENTRAL LINE FLUSH 10 ML IV PUSH ×2 (13:15→23:20)
--- NOTE | 2020-08-19 13:38 | PM.IMPN ---
Progress Note: A&P Assessment and Plan (1) Septic shock: Code(s): A41.9 - Sepsis, unspecified organism; R65.21 - Severe sepsis with septic shock Status: Acute Assessment and Plan: improving after procedure, urology and oncology rounding. I have stop iv rocephin due to severe diarrhea (2) Acute kidney injury: Code(s): N17.9 - Acute kidney failure, unspecified Status: Acute Assessment and Plan: Patient underwent cystoscopy with bilateral stent placement in tolerated procedure well. Creat is 1.3. Continue iv fluids and UC is negative Pt has catheter in situ urine is dark in color (3) Elevated troponin: Code(s): R77.8 - Other specified abnormalities of plasma proteins Status: Acute Assessment and Plan: Troponin profile is completely flat. No evidence of acute myocardial ischemia. 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 Diarrhea likely secondary to IV ABX can stop IV abx, try imodium ? rectal tube if necessary Pain control for stage 4 cancer Symptomatic control for Ca Pt is sp paracentesis on 08/16/2020 PT/OT Ensures keep fluids as pt is not eating much, failure to thrive, dietary consult made. HOLD blood thinner pt is going or pEG inserted on friday. Pt is a full code I will discuss with family about hospice or DNR status. Will need to discuss further on this. CT abdo / pelvis shows -1. 2 mm stone in distal right ureter. Bilateral internal ureteral stents in expected positions. 2. Bilateral kidney stones. 3. Lung nodules and mass, right adrenal mass, intra-abdominal and body wall masses, and right thigh mass, consistent with metastatic disease. 4. Small pleural effusions, new from 05/09/20. 5. Large volume of ascites, new from 05/09/20. 6. Cholelithiasis. Gallbladder distention may be secondary to fasting. Correlate with physical exam to exclude acute cholecystitis. CT Chest- 1. 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 Recommend correlation with biopsy. 2: Splenomegaly. 3: Cholelithiasis. 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 He has been found to have B ureteral stone, 5 mm L proximal and 6 mm R distal, with bilateral kidney stones and hydronephrosis. pt admitted for hydronephrosis and sepsis. Pt is due to have PEG tube inserted on Friday for failure to thrive. Pt does not appear confused but looks depressed. Review of Systems Review of Systems: All systems reviewed & are unremarkable except as noted in HPI and below Exam Const: General: other (chronically ill appearing port a cath in situ ) Orientation/consciousness: oriented to person HENMT: Head: normal to inspection Resp: Effort & Inspection: no respiratory distress Auscultation: no rhonchi and no wheezes Cardio: Rate: regular rate Rhythm: regular rhythm GI: Inspection: normal to inspection Auscultation: normal bowel sounds Neuro: General: oriented to person Psych: Appearance: other (depressed) Objective Data Vital Signs Vital Signs: Vital Signs - 24 hr 08/18/20 14:00 08/18/20 15:51 08/18/20 16:00 Temperature 35.9 C L Pulse Rate 102 H 94 96 Respiratory Rate 18 Blood Pressure 176/77 H Pulse Oximetry 100 08/18/20 18:00 08/18/20 20:00 08/18/20 22:00 Temperature 35.9 C L Pulse Rate 99 100 100 Respiratory Rate 20 Blood Pressure 15
[2020-08-19] MEDS: HYDROcodone/acetaminophen (*CRX) 5-325 MG TABLET 1 TAB PO (18:35)
[2020-08-20] MEDS: CENTRAL LINE FLUSH 10 ML IV PUSH ×3 (05:23→21:20)
[2020-08-20 06:29] LABS: Hematocrit 34.1 % (42.0-52.0); Hemoglobin 10.6 g/dL (14.0-18.0); Mean Corpuscular HGB Conc 31.1 g/dl (32-36); Mean Corpuscular Hemoglobin 27.2 pg (26-34); Mean Corpuscular Volume 87.4 fl (80-100); Mean Platelet Volume 8.8 fl (7.4-10.4); Platelet Count Result 98 k/mm3 (150-375); Red Cell Distribution Width 17.8 % (11.5-14.5)
[2020-08-20 06:40] LABS: INR 1.3; Prothrombin Time 16.5 Seconds (11.1-14.7)
[2020-08-20 06:55] LABS: Anion Gap 11 mmol/L (8-16); Blood Urea Nitrogen 33 mg/dL (9-20); Carbon Dioxide 14 mmol/L (22-30); Chloride 105 mmol/L (98-107); Estimated CRCL calculation 74 ml/min; Estimated Glomerular Filt Rate > 60; Glucose 75 mg/dL (75-110); Potassium 3.7 mmol/L (3.4-5.0); Sodium 130 mmol/L (137-145)
[2020-08-20 08:00] VITALS: BP 130/80; PULSE 96; RESP 16; TEMP 36.1; O2SAT 100
[2020-08-20] MEDS: FAMOTIDINE 20 MG/2 ML VIAL IV PUSH ×2 (08:21→21:20)
[2020-08-20] MEDS: FUROSEMIDE 20 MG TABLET PO ×2 (08:21→17:02)
[2020-08-20] MEDS: TOLNAFTATE 1% POWDER 45 GM BTL 1 APPLIC TOPICAL ×2 (08:21→21:20)
[2020-08-20] MEDS: SODIUM CHLORIDE 0.9% IV 1,000 ML 100 ML IV CONT ×2 (10:04→21:20)
[2020-08-20] MEDS: HYDROcodone/acetaminophen (*CRX) 5-325 MG TABLET 1 TAB PO (12:15)
--- NOTE | 2020-08-20 13:32 | PM.IMPN ---
Progress Note: A&P Assessment and Plan (1) Septic shock: Code(s): A41.9 - Sepsis, unspecified organism; R65.21 - Severe sepsis with septic shock Status: Acute Assessment and Plan: improving after procedure, urology and oncology rounding. 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, lungs, status post 3 sets of chemotherapy and has completed radiation therapy he was sent to emergency department from his oncology office with complaint of shortness of breath stating unable to breathe, constipated and pain all over the body, patient was found to be and shock septic Vs hypovolemic will leukocytosis and elevated lactic acid, suspected patient may have UTI was started on Rocephin,Patient was seen by urology and had a cystoscopy, ureteral stents were placed, his creatinine has improved to 0.8 compared 2.6 upon arrival, however urine culture is negative and so far no growth in blood culture, patient had developed diarrhea Rocephin was stopped on 08/19, patient appears quite ill and in pain, states the bowel movements have improved, complains of pain all over the body, denies any fever or chills (2) Acute kidney injury: Code(s): N17.9 - Acute kidney failure, unspecified Status: Acute Assessment and Plan: Patient underwent cystoscopy with bilateral stent placement in tolerated procedure well. Creat is 1.3. Continue iv fluids and UC is negative Pt has catheter in situ urine is dark in color (3) Elevated troponin: Code(s): R77.8 - Other specified abnormalities of plasma proteins Status: Acute Assessment and Plan: Troponin profile is completely flat. No evidence of acute myocardial ischemia. 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, lungs, status post 3 sets of chemotherapy and has completed radiation therapy he was sent to emergency department from his oncology office with complaint of shortness of breath stating unable to breathe, constipated and pain all over the body, patient was found to be and shock septic Vs hypovolemic will leukocytosis and elevated lactic acid, suspected patient may have UTI was started on Rocephin,Patient was seen by urology and had a cystoscopy, ureteral stents were placed, his creatinine has improved to 0.8 compared 2.6 upon arrival, however urine culture is negative and so far no growth in blood culture, patient had developed diarrhea Rocephin was stopped on 08/19, patient appears quite ill and in pain, states the bowel movements have improved, complains of pain all over the body, denies any fever or chills Review of Systems Review of Systems: All systems reviewed & are unremarkable except as noted in HPI and below Exam Narrative: Exam Narrative: Patient appears chronically ill and in pain Patient is comfortable, NAD HEENT: eyes are clear and none icteric LUNGS:CTA HEART: RR S1S2 ABD: BS+, Soft and nontender Lower extremities: no edema SKIN: nonjaundiced Neuro: grossly intact. Objective Data Vital Signs Vital Signs: Vital Signs - 24 hr 08/19/20 16:50 08/19/20 20:35 08/20/20 08:00 Temperature 97 F L 97.5 F L 97.0 F L Pulse Rate 93 97 96 Respiratory Rate 14 17 16 Blood Pressure 127/76 133/80 130/80 Pulse Oximetry 100 93 100 Intake/Output Intake/Output: Intake & Output 08/17/20 08/18/20 08/19/20 08/20/20 23:59 23:59 23:59 23:59 Intake Total 3120 2884 3556 1100 Output Total 950 350 300 650 Balance 2170 6954 2296 450 Meds/Results Medications: Active Medications Generic Name Dose Route
[2020-08-20 14:00] VITALS: BP 118/72; PULSE 75; RESP 18; TEMP 36.7; O2SAT 96
[2020-08-20 16:54] LABS: Glucose Point of Care 46 (65-105)
[2020-08-20] MEDS: DEXTROSE 50% 25 GM/50 ML SYRINGE IV PUSH (16:58)
[2020-08-20 17:28] LABS: Glucose Point of Care 71 (65-105)
[2020-08-20 19:40] VITALS: BP 144/89; PULSE 87; RESP 14; TEMP 36; O2SAT 90
[2020-08-21 04:27] VITALS: BP 126/78; PULSE 75; RESP 18; TEMP 36.6; O2SAT 92
[2020-08-21] MEDS: CENTRAL LINE FLUSH 10 ML IV PUSH ×2 (05:52→20:59)
[2020-08-21 05:57] LABS: Hematocrit 31.5 % (42.0-52.0); Hemoglobin 9.9 g/dL (14.0-18.0); Mean Corpuscular HGB Conc 31.4 g/dl (32-36); Mean Corpuscular Hemoglobin 27.5 pg (26-34); Mean Corpuscular Volume 87.5 fl (80-100); Mean Platelet Volume 8.6 fl (7.4-10.4); Platelet Count Result 104 k/mm3 (150-375); Red Cell Distribution Width 17.7 % (11.5-14.5); White Blood Count 8.7 K/mm3 (4.5-10.0)
[2020-08-21 06:08] LABS: Anion Gap 10 mmol/L (8-16); Blood Urea Nitrogen 29 mg/dL (9-20); Carbon Dioxide 13 mmol/L (22-30); Chloride 108 mmol/L (98-107); Estimated CRCL calculation 74 ml/min; Estimated Glomerular Filt Rate > 60; Glucose 79 mg/dL (75-110); Potassium 3.7 mmol/L (3.4-5.0); Sodium 131 mmol/L (137-145)
[2020-08-21] MEDS: LIDOCAINE 5% PATCH 1 PATCH TRANSDERM (08:21)
[2020-08-21] MEDS: FAMOTIDINE 20 MG/2 ML VIAL IV PUSH ×2 (08:21→20:58)
[2020-08-21] MEDS: FUROSEMIDE 20 MG TABLET PO ×2 (08:22→16:56)
[2020-08-21] MEDS: TOLNAFTATE 1% POWDER 45 GM BTL 1 APPLIC TOPICAL ×2 (08:22→20:59)
[2020-08-21] MEDS: SODIUM CHLORIDE 0.9% IV 1,000 ML 100 ML IV CONT ×2 (08:22→17:25)
--- NOTE | 2020-08-21 10:54 | WPDGICN ---
Assessment and Plan Assessment and plan (1) Melanoma: Code(s): C43.9 - Malignant melanoma of skin, unspecified Status: Acute (2) Peritoneal metastases: Code(s): C78.6 - Secondary malignant neoplasm of retroperitoneum and peritoneum Status: Acute Assessment and Plan: peg tube is been requested because of poor appetite. Review of CT scan reveals diffuse intra-abdominal metastases. These are scattered across the abdominal wall and would interfere with placement of PEG tube patient additionally appears to have ascites which would likewise limit placement of PEG tube. Plan is for calorie count. Attempt to increase intake orally. Should peg tube be required surgical placement may need to be considered. Hopefully this can be avoided at the present time period (3) Cholelithiasis: Code(s): K80.20 - Calculus of gallbladder without cholecystitis without obstruction Status: Acute Assessment and Plan: Asymptomatic GI Consult Note Consult date/time: 08/21/20 10:54 HPI: Germain Hays is a 69 year old male I am asked to see at the request of the hospitalist service. Nutritional support possible PEG tube is requested. Patient has a history of stage IV metastatic melanoma. CT scan reveals significant meds task disease throughout the abdomen. Patient has apparently lost his appetite. There is no obstruction described. Patient states that he is becoming hungry and feels that his appetite is improves improving over the weekend. 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 He is a [employer] [place]. He denies any alcohol use or illicit substance use. He has 2 sons who are reportedly in good health. Primary care physician: Dr. Talib Dietrich oncologist Dr. Burkett Code status: Full code Smoking packs per day: 1 Smoking cigarettes per day: 20.0 Years smoked: 8 Smoking pack-years: 8.00 Smoking status: Former smoker Tobacco type: cigarettes Second hand tobacco smoke exposure: No Smoking end date: 09/15/74 Alcohol intake: former Substance use: never Gender identity (if verbalized by the patient): Male Spiritual care concerns: No Meds Home Medications and Allergies Home Medications Medication Instructions Recorded Confirmed Type No Home Medications 08/16/20 08/16/20 History Allergies Allergy/AdvReac Type Severity Reaction Status Date / Time No Known Allergies Allergy Verified 07/14/20 13:47 Vital Signs Vital Signs - 24 hr 08/20/20 14:00 08/20/20 19:40 08/21/20 04:27 Temperature 98.0 F 96.8 F L 97.8 F Pulse Rate 75 87 75 Respiratory Rate 18 14 18 Blood Pressure 118/72 144/89 H 126/78 Pulse Oximetry 96 90 92 Exam Narrative: Exam Narrative: Physical exam reveals patient be alert and comfortable at rest. HEENT exam reveals no scleral icterus. Lungs are clear. Heart without murmur. Abdomen is modestly distended. Difficult to palpate any specific masses however. Ascites has been noted on CT scan. Results Labs CBC & Chem 7: 08/21/20 05:47
--- NOTE | 2020-08-21 11:28 | PCOTNOTE ---
Attempted OT treatment, patient currently working with physical therapy, will attempt at later time
--- NOTE | 2020-08-21 11:31 | PCDIET ---
Calorie count notification sent. Patient states today he has lost somewhere around 80 ibs in the past 4 months. He ate 10% of eggs, oatmeal,sausage, pancake and drank some of his coffee. He did state to trying diet supplements: Ensure Enlive which will provide 350 kcals and 20 gms protein added on trays. Diet order: Soft and Bite sized, Level 6. Plans for 3 day calorie count then re-evaluate. RD will monitor daily.
[2020-08-21] MEDS: POTASSIUM CHLORIDE 20 MEQ PACKET (FOR LIQUID) 40 MEQ PO (13:25)
--- NOTE | 2020-08-21 15:29 | PM.IMPN ---
Progress Note: A&P Assessment and Plan (1) Septic shock: Code(s): A41.9 - Sepsis, unspecified organism; R65.21 - Severe sepsis with septic shock Status: Acute Assessment and Plan: improving after procedure, urology and oncology rounding. 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, lungs, status post 3 sets of chemotherapy and has completed radiation therapy he was sent to emergency department from his oncology office with complaint of shortness of breath stating unable to breathe, constipated and pain all over the body, patient was found to be and shock septic Vs hypovolemic with leukocytosis and elevated lactic acid, suspected patient may have UTI was started on Rocephin,Patient was seen by urology and had a cystoscopy, ureteral stents were placed, his creatinine has improved to 0.8 compared 2.6 upon arrival, however urine culture is negative and so far no growth in blood culture, patient had developed diarrhea Rocephin was stopped on 08/19, patient appears quite ill and in pain in arms and hand appear blue, spoke with the oncologist recommending hospice care as patient has no option for treatment patient has extensive metastasis of his cancer as he presented to oncologist very late, I spoke with the patient's suggesting hospice care or comfort care for the patient and she will speak with Oncologist and further recommendation to follow (2) Acute kidney injury: Code(s): N17.9 - Acute kidney failure, unspecified Status: Acute Assessment and Plan: Patient underwent cystoscopy with bilateral stent placement in tolerated procedure well. Creat is 1.3. Continue iv fluids and UC is negative Pt has catheter in situ urine is dark in color (3) Elevated troponin: Code(s): R77.8 - Other specified abnormalities of plasma proteins Status: Acute Assessment and Plan: Troponin profile is completely flat. No evidence of acute myocardial ischemia. 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, lungs, status post 3 sets of chemotherapy and has completed radiation therapy he was sent to emergency department from his oncology office with complaint of shortness of breath stating unable to breathe, constipated and pain all over the body, patient was found to be and shock septic Vs hypovolemic with leukocytosis and elevated lactic acid, suspected patient may have UTI was started on Rocephin,Patient was seen by urology and had a cystoscopy, ureteral stents were placed, his creatinine has improved to 0.8 compared 2.6 upon arrival, however urine culture is negative and so far no growth in blood culture, patient had developed diarrhea Rocephin was stopped on 08/19, patient appears quite ill and in pain in arms and hand appear blue, spoke with the oncologist recommending hospice care as patient has no option for treatment patient has extensive metastasis of his cancer as he presented to oncologist very late, I spoke with the patient's suggesting hospice care or comfort care for the patient and she will speak with Oncologist and further recommendation to follow Review of Systems Review of Systems: All systems reviewed & are unremarkable except as noted in HPI and below Exam Narrative: Exam Narrative: Patient appears chronically ill and in pain Patient is comfortable, NAD HEENT: eyes are clear and none icteric LUNGS:CTA HEART: RR S1S2 ABD: BS+, Soft and nontender Lower extremities: no edema SKIN: nonjaundiced Neuro: grossly intact. Objective Data Vital Signs
[2020-08-21 16:44] VITALS: BP 153/90; PULSE 100; RESP 18; TEMP 36.2; O2SAT 92
[2020-08-21 20:58] VITALS: BP 119/76; PULSE 95; RESP 16; TEMP 36.2; O2SAT 100
[2020-08-22] MEDS: SODIUM CHLORIDE 0.9% IV 1,000 ML 100 ML IV CONT ×2 (03:30→16:29)
[2020-08-22] MEDS: HYDROcodone/acetaminophen (*CRX) 5-325 MG TABLET 1 TAB PO ×2 (05:47→23:34)
[2020-08-22 05:59] VITALS: BP 110/42; PULSE 90; RESP 16; TEMP 36.6; O2SAT 97
[2020-08-22 06:13] LABS: Anion Gap 9 mmol/L (8-16); Blood Urea Nitrogen 25 mg/dL (9-20); Carbon Dioxide 14 mmol/L (22-30); Chloride 109 mmol/L (98-107); Estimated CRCL calculation 84 ml/min; Estimated Glomerular Filt Rate > 60; Glucose 76 mg/dL (75-110); Potassium 3.5 mmol/L (3.4-5.0); Sodium 132 mmol/L (137-145)
[2020-08-22 06:14] LABS: Hematocrit 32.8 % (42.0-52.0); Hemoglobin 10.1 g/dL (14.0-18.0); Mean Corpuscular HGB Conc 30.8 g/dl (32-36); Mean Corpuscular Hemoglobin 26.9 pg (26-34); Mean Corpuscular Volume 87.2 fl (80-100); Mean Platelet Volume 8.6 fl (7.4-10.4); Platelet Count Result 101 k/mm3 (150-375); Red Blood Count 3.76 M/mm3 (4.6-6.20); Red Cell Distribution Width 17.9 % (11.5-14.5); White Blood Count 7.8 K/mm3 (4.5-10.0)
[2020-08-22] MEDS: CENTRAL LINE FLUSH 10 ML IV PUSH ×3 (06:36→21:00)
[2020-08-22] MEDS: LIDOCAINE 5% PATCH 1 PATCH TRANSDERM (09:07)
[2020-08-22] MEDS: FAMOTIDINE 20 MG/2 ML VIAL IV PUSH ×2 (09:07→20:28)
[2020-08-22] MEDS: FUROSEMIDE 20 MG TABLET PO ×2 (09:07→16:29)
[2020-08-22] MEDS: TOLNAFTATE 1% POWDER 45 GM BTL 1 APPLIC TOPICAL ×2 (09:08→20:30)
[2020-08-22] MEDS: POTASSIUM CHLORIDE 20 MEQ PACKET (FOR LIQUID) 40 MEQ PO (09:28)
--- NOTE | 2020-08-22 10:27 | WPDGIPROGNO ---
Progress Note: A&P Additional Plan Patient remains with poor appetite. Not eating adequate intake at this time. Physical exam reveals abdomen to be distended. Shifting dullness. Somewhat tense. No obvious palpable mass however. Impression 1. Inanition not eating likely secondary to metastatic cancer. 2. Widely metastatic melanoma. Intra-abdominal masses would make PEG tube difficult as well as ascites. If G-tube required surgical consult may need to be considered. I understand hospice is being considered by the family. Subjective Date/time seen: 08/22/20 10:27 Objective Data Vital Signs Vital Signs: Vital Signs - 24 hr 08/21/20 16:44 08/21/20 20:58 08/22/20 05:59 Temperature 97.1 F L 97.2 F L 98 F Pulse Rate 100 95 90 Respiratory Rate 18 16 16 Blood Pressure 153/90 H 119/76 110/42 L Pulse Oximetry 92 100 97 Intake/Output Intake/Output: Intake & Output 08/19/20 08/20/20 08/21/20 08/22/20 23:59 23:59 23:59 23:59 Intake Total 3556 2150 2150 1100 Output Total 300 950 550 325 Balance 3256 1200 1600 775 Meds/Results Medications: Active Medications Generic Name Dose Route Start Last Admin Trade Name Freq PRN Reason Stop Dose Admin Hydrocodone Bitart/Acetaminophen 1 tab 08/18/20 15:18 08/22/20 05:47 Hydrocodone/Acetaminophen (*Crx) 5-325 Mg Tablet PO 1 tab Q6H PRN Administration Pain Rated 4-6 Dextrose 12.5 gm 08/15/20 20:07 08/20/20 16:58 Dextrose 50% 25 Gm/50 Ml Syringe IV PUSH 12.5 gm PRN PRN Administration Hypoglycemia Protocol Famotidine 20 mg 08/15/20 21:00 08/22/20 09:07 Famotidine 20 Mg/2 Ml Vial IV PUSH 20 mg Q12HR NATHAN Administration Furosemide 20 mg 08/16/20 17:00 08/22/20 09:07 Furosemide 20 Mg Tablet PO 20 mg BID NATHAN Administration Glucagon 1 mg 08/15/20 20:07 Glucagon For Inj 1 Mg Vial IM PRN PRN Hypoglycemia Protocol Glucose 15 gm 08/15/20 20:07 Glucose Oral Gel 15 Gm Of Glucse In 37.5 Gm Tube PO PRN PRN Hypoglycemia Protocol Heparin Sodium (Porcine) 500 units 08/17/20 08:53 Heparin Sod Flush 500 Units/5 Ml Syringe IV PUSH PRN PRN see comments below Dextrose 1,000 mls @ 100 mls/hr 08/15/20 20:07 Dextrose 5% 1,000 Ml IVPB PRN PRN Hypoglycemia Protocol Sodium Chloride 1,000 mls @ 100 mls/hr 08/16/20 00:45 08/22/20 03:30 Normal Saline Iv IV CONT 100 mls/hr .Q10H NATHAN Administration Lidocaine 1 patch 08/18/20 15:25 08/22/20 09:07 Lidocaine 5% Patch TRANSDERM 1 patch DAILY NATHAN Administration Loperamide HCl 2 mg 08/18/20 15:19 Loperamide Hcl 2 Mg Capsule PO PRN PRN Diarrhea Ondansetron HCl 4 mg 08/15/20 20:07 08/17/20 09:37 Ondansetron Inj 4 Mg/2 Ml Vial IV PUSH 4 mg Q6H PRN Administration Nausea And Vomiting Ondansetron HCl 4 mg 08/15/20 20:54 Ondansetron Inj 4 Mg/2 Ml Vial IV PUSH ONCE PRN Nausea Oxybutynin Chloride 5 mg 08/18/20 09:39 Oxybutynin Chloride 5 Mg Tablet PO TID PRN Bladder Spasm Sodium Chloride 10 ml 08/17/20 14:00 08/22/20 06:36 Central Line Flush IV PUSH 10 ml Q8HR NATHAN Administration Sodium Chloride 10 ml 08/17/20 08:53 Central Line Flush IV PUSH PRN PRN before/after int. infusion Sodium Chloride 20 ml 08/17/20 08:53 Central Line Flush IV PUSH PRN PRN after blood draws Tolnaftate 1 applic 08/18/20 09:00 08/22/20 09:08 Tolnaftate 1% Powder 45 Gm Btl TOPICAL 1 applic Q12HR NATHAN Administration Radiology Results: ITS Impressions Retrograde Pyelogram 08/15/20 22:19 IMPRESSION: 1. Bilateral internal ureteral stents in expected positions. See procedure note for further detail. Paracentesis Ultrasound 08/16/20 14:19 IMPRESSION: 1. Successful ultrasound-guided paracentesis yielding 4600 mL of red fluid. Chest X-Ray 08/17/20 07:21 IMPRESSION: 1. No acute cardio
--- NOTE | 2020-08-22 13:15 | PM.CNGS ---
Assessment and Plan Assessment and plan (1) Malignant melanoma: Code(s): C43.9 - Malignant melanoma of skin, unspecified Status: Inactive Assessment and Plan: I have reviewed the CT discussed options with the patient and his . He has metastatic melanoma and is near end of life care. Palliative treatment has been attempted, but he is not seeming to make any progress. Surgical placement of a G-tube in his current condition offers several significant risks. General anesthesia in his weakened state could have its own inherent risks. With the significant amount of ascites, I discussed that wound healing and G-tube dislodgement could be serious concerns. Also with the descending colon mass, this could be near obstructing and neck could be playing a part in why he is not able to eat much. There are obstruction risks with this which would cause vomiting of tube feedings and potential for aspiration. All this being said, surgery would put him through more pain and suffering than it may be worth. A trial of Dophoff tube feedings could be considered prior to making any final decision, but ultimately considering hospice seems the best option. (2) Failure to thrive: Qualifiers: Failure to thrive age range: in adult Qualified Code(s): R62.7 - Adult failure to thrive Status: Acute (3) Acute kidney injury: Code(s): N17.9 - Acute kidney failure, unspecified Status: Acute History of Present Illness Consult details Consult date: 08/22/20 Requesting physician: Lianne Jin MD Narrative: This is a 69-year-old man who I am asked to see for a possible gastrostomy tube placement. He has a recent diagnosis of metastatic melanoma. He presented just a couple months ago with new symptoms and underwent testing and eventual biopsy which confirmed melanoma. He was admitted to the hospital on 08/16 with it obstructing ureteral stone and UTI. He has not been able to eat much due to poor appetite. He is not a great historian, therefore a great amount of the history is obtained from the chart a and from his . His has been encouraging him to eat while he was undergoing radiation and immunotherapy. He very seldomly eats and just drinks some broth and a little bit of his Ensure drinks. He has continued to lose weight and is becoming more frail. Dr. Burkett discussed further treatment with the patient and felt that he may not be strong enough to continue any further chemo. The still would like him to try to regain some strength if at all possible. PEG tube placement was discussed as an option and Gastroenterology was consulted but they feel that it would be an unsafe procedure given the amount of ascites abdominal metastases that the patient has. The voiced that she does not want to put him through a procedure that is going to be too risky and also does not want to put him through more suffering. She also would like for him to get stronger to try another round of chemo. She understands that he has metastatic cancer, but also states that she is grabbing at straws and holding on to hope for a miracle . Review of Systems Review of Systems: All systems reviewed & are unremarkable except as noted in HPI and below Constitutional: Constitutional: Reports as per HPI, Reports lethargy, Reports poor appetite, Reports weakness and Reports weight loss Eyes: Eyes: Denies change in vision ENT: Denies hearing loss, Denies neck pain and Denies sore throat Cardiovascular: Cardiovascular: Denies chest pain and Denies dyspnea Respiratory: Respiratory: Denies cough, Denies dyspnea and Denies wheezing Gastrointestinal: Gastrointestinal: Reports as per HPI, Denies abdominal pain and Reports bloating Genitourinary: Genitourinary: Denies hematuria and Denies dysuria Musculoskeletal: Musculoskeletal: Denies arthralgias, Denies joint swelling and Denies neck pain Allergic/Immunologic: Allergic/Immunologic:
--- NOTE | 2020-08-22 14:23 | PCDIET ---
Nutrition Follow-Up Complete: Involuntary weight loss related to metastatic cancer as evidenced by reported decreased intake and weight loss and documented weight loss of 8.9% x 3 months which is significant. Patient to consume 75% of meals/supplements or greater and maintain weight. Goal: Goal not met. Continue goal. Pt current nutrition is Soft and bite sized, level 6 with Enlive TID Nutrition recommendation: Recommend supplemental feedings via Dobbhoff due to poor intake Last recorded weight is 79.4 kg, up from 76.4kg on admit Bowel Motility: BM+ yesterday Labs Reviewed: Meds Noted: Additional Notes: Pt with 20% intake of lunch yesterday, 10% of dinner yesterday, and breakfast refusal this am. MD consult for EN. Pt down for Dobbhoff now. Recommend Jevity 1.5 starting at 10ml/hr, increasing 10ml q 4hrs to goal day one fo 30ml/hr to provide 990 kcals. If electrolytes remain stable, recommend increasing 10ml q 4hrs to goal day two of 60ml/hr. Pt at risk for refeeding syndrome so slow increase to goal appropriate. At goal, enteral nutrition will provide 1980kcals, 84g protein, and 1003ml of free water over 22hrs. Following daily.
--- NOTE | 2020-08-22 15:08 | PM.IMPN ---
Progress Note: A&P Assessment and Plan (1) Septic shock: Code(s): A41.9 - Sepsis, unspecified organism; R65.21 - Severe sepsis with septic shock Status: Acute Assessment and Plan: improving after procedure, urology and oncology rounding. 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, lungs, status post 3 sets of chemotherapy and has completed radiation therapy he was sent to emergency department from his oncology office with complaint of shortness of breath stating unable to breathe, constipated and pain all over the body, patient was found to be and shock septic Vs hypovolemic with leukocytosis and elevated lactic acid, suspected patient may have UTI was started on Rocephin,Patient was seen by urology and had a cystoscopy, ureteral stents were placed, his creatinine has improved to 0.8 compared 2.6 upon arrival, however urine culture is negative and so far no growth in blood culture, patient had developed diarrhea Rocephin was stopped on 08/19, on 08/22 patient appears quite ill and in pain in arms and hand appear blue, spoke with the oncologist on 08/21 recommending hospice care as patient has no option for treatment patient has extensive metastasis of his cancer as he presented to oncologist very late, I spoke with the patient's on 08/21 suggesting hospice care or comfort care for the patient, patient was seen by GI stated patient is not a candidate for PEG due metastatic cancer and ascites, patient wanted another opinion from surgeon and he was seen by the surgeon and he had same opinion for surgical placement of PEG as GI and additional risk of surgery, finally Dobbhoff was placed today and will start the feeding and further recommendation to follow (2) Acute kidney injury: Code(s): N17.9 - Acute kidney failure, unspecified Status: Acute Assessment and Plan: Patient underwent cystoscopy with bilateral stent placement in tolerated procedure well. Creat is 1.3. Continue iv fluids and UC is negative Pt has catheter in situ urine is dark in color (3) Elevated troponin: Code(s): R77.8 - Other specified abnormalities of plasma proteins Status: Acute Assessment and Plan: Troponin profile is completely flat. No evidence of acute myocardial ischemia. 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, lungs, status post 3 sets of chemotherapy and has completed radiation therapy he was sent to emergency department from his oncology office with complaint of shortness of breath stating unable to breathe, constipated and pain all over the body, patient was found to be and shock septic Vs hypovolemic with leukocytosis and elevated lactic acid, suspected patient may have UTI was started on Rocephin,Patient was seen by urology and had a cystoscopy, ureteral stents were placed, his creatinine has improved to 0.8 compared 2.6 upon arrival, however urine culture is negative and so far no growth in blood culture, patient had developed diarrhea Rocephin was stopped on 08/19, on 08/22 patient appears quite ill and in pain in arms and hand appear blue, spoke with the oncologist on 08/21 recommending hospice care as patient has no option for treatment patient has extensive metastasis of his cancer as he presented to oncologist very late, I spoke with the patient's on 08/21 suggesting hospice care or comfort care for the patient, patient was seen by GI stated patient is not a candidate for PEG due metastatic cancer and ascites, patient wanted another opinion from
[2020-08-22 15:59] VITALS: BP 147/88; PULSE 104; RESP 18; TEMP 36.6; O2SAT 94
--- NOTE | 2020-08-22 16:15 | P.PNONC_ITS ---
Progress Note: A/P - Additional Plan Metastatic malignant melanoma. Patient is status post immunotherapy 3 cycles. His condition is actively declining. I have discussed this case in detail with the [facility] on the phone as well as Dr. Jessica marr today. Patient wants to pursue with treatment and would also like to get the feeding tube placed. After discussion with Dr. Ruth. We decided to proceed with Dobbhoff tube for temporary feeding. Patient can be discharged home after the tube placement to follow-up with us in the office. Ascites. Status post paracentesis. Bilateral nephrolithiasis. Status post stent placement. Patient seems to be comfortable. Acute renal insufficiency. Creatinine has improved. - Time Spent With Patient Total time spent is greater than 50% in coordination of care (as documented) at patient's floor/unit and/or counseling patient: 15 - 25 minutes Subjective Interval history: Metastatic malignant melanoma Anorexia and weight loss Review of Systems - Review of Systems Patient remains quite confused. He is not eating much. Continues to lose weig ht. Denies any bone pain and abdominal pain. Abdomen looks distended. - Neurologic Reports weakness Exam Vital signs: Temp Pulse Resp BP Pulse Ox 36.6 C 104 H 18 147/88 H 94 08/22/20 15:59 08/22/20 15:59 08/22/20 15:59 08/22/20 15:59 08/22/20 15:59 Narrative: Lungs are clear to auscultation bilaterally Cardiovascular regular rate rhythm no murmurs Abdomen distended with fluid bowel sounds are positive Extremities no edema - Constitutional no acute distress - Routine Neck Exam Present: normal inspection. Absent: lymphadenopathy - Routine Chest/Breast/Axilla Exam Axillae: Present: mass (Lt axilla ~ 5 x 5 cm) - Routine Respiratory Exam Present: CTAB. Absent: respiratory distress - Routine Cardiovascular Exam Cardiovascular: Present: RRR - Routine Abdominal Exam Present: normal bowel sounds, soft, tenderness - Routine Extremities Exam Present: normal inspection, pulses intact. Absent: pedal edema, extremity cold to touch - Routine Neurological Exam Present: alert, oriented X3 - Detailed Neurological Exam: Coma Scale Eye Opening: Spontaneous Verbal Response: Orientated Motor Response: Obey commands Glascow Coma Scale Total: 15 - Routine Psychiatric Exam Present: depressed. Absent: normal affect PN: Objective Data - Labs CBC & Chem 7: 08/22/20 05:39 08/22/20 05:39 Labs: Laboratory Results - last 24 hr 08/22/20 08/22/20 05:39 05:39 WBC 7.8 RBC 3.76 L Hgb 10.1 L Hct 32.8 L MCV 87.2 MCH 26.9 MCHC 30.8 L RDW 17.9 H Plt Count 101 L MPV 8.6 Sodium 132 L Potassium 3.5 Chloride 109 H Carbon Dioxide 14 L Anion Gap 9 BUN 25 H Creatinine 0.70 Estim Creat Clear Calc 84 Estimated GFR > 60 Glucose 76 Calcium 7.0 L
[2020-08-22 21:44] VITALS: BP 135/83; PULSE 109; RESP 18; TEMP 36.1; O2SAT 94
[2020-08-23] MEDS: SODIUM CHLORIDE 0.9% IV 1,000 ML 100 ML IV CONT ×3 (01:47→21:58)
[2020-08-23 04:39] VITALS: BP 124/81; PULSE 95; RESP 18; TEMP 36.5; O2SAT 100
[2020-08-23] MEDS: CENTRAL LINE FLUSH 10 ML IV PUSH ×3 (05:39→23:08)
[2020-08-23 05:51] LABS: Hematocrit 29.8 % (42.0-52.0); Hemoglobin 9.4 g/dL (14.0-18.0); Mean Corpuscular HGB Conc 31.5 g/dl (32-36); Mean Corpuscular Hemoglobin 27.6 pg (26-34); Mean Corpuscular Volume 87.6 fl (80-100); Mean Platelet Volume 8.5 fl (7.4-10.4); Platelet Count Result 97 k/mm3 (150-375); Red Cell Distribution Width 18.2 % (11.5-14.5); White Blood Count 7.1 K/mm3 (4.5-10.0)
[2020-08-23 06:05] LABS: Anion Gap 6 mmol/L (8-16); Blood Urea Nitrogen 24 mg/dL (9-20); Calcium 6.9 mg/dL (8.4-10.2); Carbon Dioxide 16 mmol/L (22-30); Chloride 109 mmol/L (98-107); Estimated CRCL calculation 84 ml/min; Estimated Glomerular Filt Rate > 60; Glucose 93 mg/dL (75-110); Potassium 3.3 mmol/L (3.4-5.0); Sodium 131 mmol/L (137-145)
[2020-08-23] MEDS: LIDOCAINE 5% PATCH 1 PATCH TRANSDERM (08:24)
[2020-08-23] MEDS: FUROSEMIDE 20 MG TABLET PO ×2 (08:24→16:12)
[2020-08-23] MEDS: FAMOTIDINE 20 MG/2 ML VIAL IV PUSH ×2 (08:24→23:07)
[2020-08-23] MEDS: TOLNAFTATE 1% POWDER 45 GM BTL 1 APPLIC TOPICAL ×2 (08:26→23:07)
[2020-08-23] MEDS: HEPARIN SOD FLUSH 500 UNITS/5 ML SYRINGE IV PUSH (09:36)
[2020-08-23] MEDS: POTASSIUM CHLORIDE 20 MEQ PACKET (FOR LIQUID) 40 MEQ PO (09:49)
--- NOTE | 2020-08-23 10:42 | WPDGIPROGNO ---
Progress Note: A&P Additional Plan Patient remains somewhat confused intermittently. Now receiving nutrition via Dobbhoff tube. Physical exam reveals patient to be confused. HEENT exam unremarkable. Abdomen is distended. Somewhat doughy in nature bowel sounds are diminished. Shifting dullness appreciated. Impression 1. Metastatic melanoma. Intra-abdominal masses with ascites evident. 2. Confusion. Patient appears to have end-stage disease. Nutrition. Via Dobbhoff tube appears most prudent. Placing G-tube either by surgery or endoscopic means appears somewhat risky. Agree that nutrition via Dobbhoff tube is appropriate present time. Subjective Date/time seen: 08/23/20 10:42 Objective Data Vital Signs Vital Signs: Vital Signs - 24 hr 08/22/20 15:59 08/22/20 21:44 08/23/20 04:39 Temperature 97.8 F 97 F L 97.7 F Pulse Rate 104 H 109 H 95 Respiratory Rate 18 18 18 Blood Pressure 147/88 H 135/83 124/81 Pulse Oximetry 94 94 100 Intake/Output Intake/Output: Intake & Output 08/20/20 08/21/20 08/22/20 08/23/20 23:59 23:59 23:59 23:59 Intake Total 2150 2150 2300 1450 Output Total 950 550 500 300 Balance 1200 1600 1800 1150 Meds/Results Medications: Active Medications Generic Name Dose Route Start Last Admin Trade Name Freq PRN Reason Stop Dose Admin Hydrocodone Bitart/Acetaminophen 1 tab 08/18/20 15:18 08/22/20 23:34 Hydrocodone/Acetaminophen (*Crx) 5-325 Mg Tablet PO 1 tab Q6H PRN Administration Pain Rated 4-6 Dextrose 12.5 gm 08/15/20 20:07 08/20/20 16:58 Dextrose 50% 25 Gm/50 Ml Syringe IV PUSH 12.5 gm PRN PRN Administration Hypoglycemia Protocol Famotidine 20 mg 08/15/20 21:00 08/23/20 08:24 Famotidine 20 Mg/2 Ml Vial IV PUSH 20 mg Q12HR NATHAN Administration Furosemide 20 mg 08/16/20 17:00 08/23/20 08:24 Furosemide 20 Mg Tablet PO 20 mg BID NATHAN Administration Glucagon 1 mg 08/15/20 20:07 Glucagon For Inj 1 Mg Vial IM PRN PRN Hypoglycemia Protocol Glucose 15 gm 08/15/20 20:07 Glucose Oral Gel 15 Gm Of Glucse In 37.5 Gm Tube PO PRN PRN Hypoglycemia Protocol Heparin Sodium (Porcine) 500 units 08/17/20 08:53 08/23/20 09:36 Heparin Sod Flush 500 Units/5 Ml Syringe IV PUSH 500 units PRN PRN Administration see comments below Dextrose 1,000 mls @ 100 mls/hr 08/15/20 20:07 Dextrose 5% 1,000 Ml IVPB PRN PRN Hypoglycemia Protocol Sodium Chloride 1,000 mls @ 100 mls/hr 08/16/20 00:45 08/23/20 01:47 Normal Saline Iv IV CONT 100 mls/hr .Q10H NATHAN Administration Lidocaine 1 patch 08/18/20 15:25 08/23/20 08:24 Lidocaine 5% Patch TRANSDERM 1 patch DAILY NATHAN Administration Loperamide HCl 2 mg 08/18/20 15:19 Loperamide Hcl 2 Mg Capsule PO PRN PRN Diarrhea Ondansetron HCl 4 mg 08/15/20 20:07 08/17/20 09:37 Ondansetron Inj 4 Mg/2 Ml Vial IV PUSH 4 mg Q6H PRN Administration Nausea And Vomiting Ondansetron HCl 4 mg 08/15/20 20:54 Ondansetron Inj 4 Mg/2 Ml Vial IV PUSH ONCE PRN Nausea Oxybutynin Chloride 5 mg 08/18/20 09:39 Oxybutynin Chloride 5 Mg Tablet PO TID PRN Bladder Spasm Sodium Chloride 10 ml 08/17/20 14:00 08/23/20 05:39 Central Line Flush IV PUSH 10 ml Q8HR NATHAN Administration Sodium Chloride 10 ml 08/17/20 08:53 Central Line Flush IV PUSH PRN PRN before/after int. infusion Sodium Chloride 20 ml 08/17/20 08:53 Central Line Flush IV PUSH PRN PRN after blood draws Tolnaftate 1 applic 08/18/20 09:00 08/23/20 08:26 Tolnaftate 1% Powder 45 Gm Btl TOPICAL 1 applic Q12HR NATHAN Administration Radiology Results: ITS Impressions Retrograde Pyelogram 08/15/20 22:19 IMPRESSION: 1. Bilateral internal ureteral stents in expected positions. See procedure note for further detail. Paracentesis Ultrasound 08/16/20 1
--- NOTE | 2020-08-23 11:21 | PCNFU ---
Nutrition Follow-Up Complete: Involuntary weight loss related to metastatic cancer as evidenced by reported decreased intake and weight loss and documented weight loss of 8.9% x 3 months which is significant. Goal: Patient to consume 75% of meals/supplements or greater and maintain weight. goal not met. New goal: Meet estimated nutritional needs. Progressing towards new goal. Pt current nutrition is Jevity 1.5 at 30 ml/hr and oral feedings of soft and bite sized,Level 6. Nutrition recommendation:agree Last recorded weight is 84 kg up from 76.4 kg on admit. Bowel Motility:+BM reported 08/22 Labs Reviewed:BNU 24,Na 131, Hct 29.8 Meds Noted:Heparin, [place],NS 1000ml at 100ml/hr. Additional Notes: Patient continues to refusing oral feedings/bite reported. Jevity 1.5 is being tolerated well per nursing. Plans to increase tube feedings by 10 ml/hr q 4 hours to goal rate of 60 ml/hr. Monitoring: Follow up every T/F day.
[2020-08-23 14:00] VITALS: BP 124/79; PULSE 104; RESP 20; TEMP 36.4; O2SAT 100
--- NOTE | 2020-08-23 14:15 | PCPTNOTE ---
Patient refused treatment this session. Patient encouraged to participate in LE exercise interventions and bed mobility. Patient refused exercises and refused to transfer supine to sit on EOB. PT will continue to follow per plan of care.
--- NOTE | 2020-08-23 15:50 | PM.PNGS ---
Progress Note: A&P Assessment and Plan (1) Malignant melanoma: Code(s): C43.9 - Malignant melanoma of skin, unspecified Status: Inactive Assessment and Plan: Tolerating tube feeding at current rate. Continue to advance tube feeding per recommendations. Encouraged patient again today to attempt eating even if appetite is poor - try small frequent meals/snacks. Patient high risk for surgical g-tube placement and avoiding this option if at all possible. Continue to encourage nutrition and Dobhoff tube feeding trial. (2) Failure to thrive: Qualifiers: Failure to thrive age range: in adult Qualified Code(s): R62.7 - Adult failure to thrive Status: Acute (3) Acute kidney injury: Code(s): N17.9 - Acute kidney failure, unspecified Status: Acute Additional Plan Discussed plan with Dr. Ruth. Subjective Subjective Date/Time Seen: 08/23/20 15:50 Patient reports: no new complaints Interval history: Patient seen today. No specific complaints at this time. States he still has poor appetite. It appears he has refused breakfast/lunch/dinner. Per the nurse, he has had some intermittent confusion today, but not currently on my exam. Review of Systems Review of Systems: All systems reviewed & are unremarkable except as noted in HPI and below Constitutional: Constitutional: Reports as per HPI, Reports no additional constitutional complaints and Reports poor appetite Exam Const: General: alert; No acute distress Nutritional Appearance: cachectic Orientation/consciousness: patient oriented x3 GI: Inspection: distended and other (ascites) GI Palp: Yes Soft to palpation, No Tenderness to palpation present (GI), No Guarding due to palpation present (GI), No Hernia present and No Rebound tenderness present Auscultation: normal bowel sounds Skin: General skin exam: pallor Neuro: General: patient oriented x3, moves all extremities and no focal motor deficits Extrem: General: normal to inspection and capillary refill normal Objective Data Vital Signs Vital Signs: Vital Signs - 24 hr 08/22/20 15:59 08/22/20 21:44 08/23/20 04:39 Temperature 97.8 F 97 F L 97.7 F Pulse Rate 104 H 109 H 95 Respiratory Rate 18 18 18 Blood Pressure 147/88 H 135/83 124/81 Pulse Oximetry 94 94 100 08/23/20 14:00 Temperature 97.5 F L Pulse Rate 104 H Respiratory Rate 20 Blood Pressure 124/79 Pulse Oximetry 100 Intake/Output Intake/Output: Intake & Output 08/20/20 08/21/20 08/22/20 08/23/20 23:59 23:59 23:59 23:59 Intake Total 2150 2150 2300 2450 Output Total 950 550 500 300 Balance 1200 1600 1800 2150 Meds/Results Medications: Active Medications Generic Name Dose Route Start Last Admin Trade Name Freq PRN Reason Stop Dose Admin Hydrocodone Bitart/Acetaminophen 1 tab 08/18/20 15:18 08/22/20 23:34 Hydrocodone/Acetaminophen (*Crx) 5-325 Mg Tablet PO 1 tab Q6H PRN Administration Pain Rated 4-6 Dextrose 12.5 gm 08/15/20 20:07 08/20/20 16:58 Dextrose 50% 25 Gm/50 Ml Syringe IV PUSH 12.5 gm PRN PRN Administration Hypoglycemia Protocol Famotidine 20 mg 08/15/20 21:00 08/23/20 08:24 Famotidine 20 Mg/2 Ml Vial IV PUSH 20 mg Q12HR NATHAN Administration Furosemide 20 mg 08/16/20 17:00 08/23/20 08:24 Furosemide 20 Mg Tablet PO 20 mg BID NATHAN Administration Glucagon 1 mg 08/15/20 20:07 Glucagon For Inj 1 Mg Vial IM PRN PRN Hypoglycemia Protocol Glucose 15 gm 08/15/20 20:07 Glucose Oral Gel 15 Gm Of Glucse In 37.5 Gm Tube PO PRN PRN Hypoglycemia Protocol Heparin Sodium (Porcine) 500 units 08/17/20 08:53 08/23/20 09:36 Heparin Sod Flush 500 Units/5 Ml Syringe IV PUSH 500 units PRN PRN Administration see comments below Dextrose 1,000 mls @ 100 mls/hr 08/15/20 20:07 Dextrose 5% 1,000 Ml IVPB PRN PRN Hypoglycemia Protocol Sodium Chloride 1,000 mls @ 100
--- NOTE | 2020-08-23 17:20 | PM.IMPN ---
Progress Note: A&P Assessment and Plan (1) Septic shock: Code(s): A41.9 - Sepsis, unspecified organism; R65.21 - Severe sepsis with septic shock Status: Acute Assessment and Plan: improving after procedure, urology and oncology rounding. 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, lungs, status post 3 sets of chemotherapy and has completed radiation therapy he was sent to emergency department from his oncology office with complaint of shortness of breath stating unable to breathe, constipated and pain all over the body, patient was found to be and shock septic Vs hypovolemic with leukocytosis and elevated lactic acid, suspected patient may have UTI was started on Rocephin,Patient was seen by urology and had a cystoscopy, ureteral stents were placed, his creatinine has improved to 0.8 compared 2.6 upon arrival, however urine culture is negative and so far no growth in blood culture, patient had developed diarrhea Rocephin was stopped on 08/19, on 08/22 patient appears quite ill and in pain in arms and hand appear blue, spoke with the oncologist on 08/21 recommending hospice care as patient has no option for treatment patient has extensive metastasis of his cancer as he presented to oncologist very late, I spoke with the patient's on 08/21 suggesting hospice care or comfort care for the patient, patient was seen by GI stated patient is not a candidate for PEG due metastatic cancer and ascites, patient wanted another opinion from surgeon and he was seen by the surgeon and he had same opinion for surgical placement of PEG as GI and additional risk of surgery, finally Dobbhoff was placed on 08/22 and he was started on tube feeding which he is tolerating, his not present in the room, unfortunately patient is still quite somnolent unable to provide any review of symptoms. However there is one concern with Dobbhoff patient cannot be discharged home or to intermediate, in the event patient pulls off the Dobbhoff it can only be reinserted by IR and patient have to return to the hospital (2) Acute kidney injury: Code(s): N17.9 - Acute kidney failure, unspecified Status: Acute Assessment and Plan: Patient underwent cystoscopy with bilateral stent placement in tolerated procedure well. Creat is 1.3. Continue iv fluids and UC is negative Pt has catheter in situ urine is dark in color (3) Elevated troponin: Code(s): R77.8 - Other specified abnormalities of plasma proteins Status: Acute Assessment and Plan: Troponin profile is completely flat. No evidence of acute myocardial ischemia. 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, lungs, status post 3 sets of chemotherapy and has completed radiation therapy he was sent to emergency department from his oncology office with complaint of shortness of breath stating unable to breathe, constipated and pain all over the body, patient was found to be and shock septic Vs hypovolemic with leukocytosis and elevated lactic acid, suspected patient may have UTI was started on Rocephin,Patient was seen by urology and had a cystoscopy, ureteral stents were placed, his creatinine has improved to 0.8 compared 2.6 upon arrival, however urine culture is negative and so far no growth in blood culture, patient had developed diarrhea Rocephin was stopped on 08/19, on 08/22 patient appears quite ill and in pain in arms and hand appear blue, spoke with the oncologist on 08/21 recommending hospice care as patient has no option for t
[2020-08-23] MEDS: HYDROcodone/acetaminophen (*CRX) 5-325 MG TABLET 1 TAB PO (19:45)
[2020-08-23] MEDS: OXYBUTYNIN CHLORIDE 5 MG TABLET PO (19:46)
[2020-08-23 20:45] VITALS: BP 141/96; PULSE 124; RESP 18; TEMP 36.7; O2SAT 97
[2020-08-24] MEDS: ONDANSETRON INJ 4 MG/2 ML VIAL IV PUSH (01:11)
[2020-08-24] MEDS: HYDROcodone/acetaminophen (*CRX) 5-325 MG TABLET 1 TAB PO (02:33)
[2020-08-24] MEDS: HEPARIN SOD FLUSH 500 UNITS/5 ML SYRINGE IV PUSH (06:05)
[2020-08-24] MEDS: CENTRAL LINE FLUSH 10 ML IV PUSH ×3 (06:24→22:50)
[2020-08-24] MEDS: CENTRAL LINE FLUSH 20 ML IV PUSH (06:24)
[2020-08-24 06:49] LABS: Hemoglobin 7.8 g/dL (14.0-18.0); Mean Corpuscular HGB Conc 31.2 g/dl (32-36); Mean Corpuscular Hemoglobin 27.8 pg (26-34); Mean Platelet Volume 9.2 fl (7.4-10.4); Platelet Count Result 77 k/mm3 (150-375); Red Blood Count 2.81 M/mm3 (4.6-6.20); Red Cell Distribution Width 18.3 % (11.5-14.5); White Blood Count 7.1 K/mm3 (4.5-10.0)
[2020-08-24 08:00] VITALS: TEMP 36.8; O2SAT 95
--- NOTE | 2020-08-24 09:15 | PCOTNOTE ---
Attempted therapy session with patient, but patient refused, stating he didn't feel like doing anything today.
--- NOTE | 2020-08-24 10:21 | PM.PNGS ---
Progress Note: A&P Assessment and Plan (1) Malignant melanoma: Code(s): C43.9 - Malignant melanoma of skin, unspecified Status: Inactive Assessment and Plan: Stopped tube feedings and ordered a KUB to evaluate. The patient is not tolerating tube feedings. If he is unable to tolerate feedings through a Dobhoff, he would also not tolerate feedings through a G-tube. Therefore, surgery is not indicated. With the patient's overall poor prognosis, it seems most appropriate to consider Hospice. (2) Failure to thrive: Qualifiers: Failure to thrive age range: in adult Qualified Code(s): R62.7 - Adult failure to thrive Status: Acute (3) Acute kidney injury: Code(s): N17.9 - Acute kidney failure, unspecified Status: Acute Additional Plan Discussed plan with Dr. Ruth. Subjective Subjective Date/Time Seen: 08/24/20 10:00 Patient reports: flatus, bowel movement, nausea and vomiting Interval history: Patient seen and examined. Reports vomiting overnight, unable to recall if he has had bowel movements or other events from overnight due to confusion. Per the nurse, he has a large amount of emesis overnight. She also reports 2 BMs overnight. Patient denies abdominal pain or nausea at this time. Review of Systems Review of Systems: All systems reviewed & are unremarkable except as noted in HPI and below Exam Const: General: alert and ill appearing chronically; No acute distress Nutritional Appearance: cachectic Orientation/consciousness: oriented to person, oriented to place, oriented to time and confusion GI: Inspection: distended and other (ascites) GI Palp: Yes Firmness to palpation present (GI), No Tenderness to palpation present (GI), No Guarding due to palpation present (GI) and No Rebound tenderness present Auscultation: normal bowel sounds Skin: General skin exam: pallor Neuro: General: moves all extremities and no focal motor deficits Extrem: General: normal to inspection and capillary refill normal Psych: Insight: Limited insight present (Psych) Judgement: Limited judgement present (Psych) Objective Data Vital Signs Vital Signs: Vital Signs - 24 hr 08/23/20 14:00 08/23/20 20:45 08/24/20 08:00 Temperature 97.5 F L 98.1 F 98.2 F Pulse Rate 104 H 124 H Respiratory Rate 20 18 Blood Pressure 124/79 141/96 H Pulse Oximetry 100 97 Intake/Output Intake/Output: Intake & Output 08/21/20 08/22/20 08/23/20 08/24/20 23:59 23:59 23:59 23:59 Intake Total 2150 2300 3650 100 Output Total 550 500 300 620 Balance 1600 1800 3350 -520 Meds/Results Medications: Active Medications Generic Name Dose Route Start Last Admin Trade Name Freq PRN Reason Stop Dose Admin Hydrocodone Bitart/Acetaminophen 1 tab 08/18/20 15:18 08/24/20 02:33 Hydrocodone/Acetaminophen (*Crx) 5-325 Mg Tablet PO 1 tab Q6H PRN Administration Pain Rated 4-6 Dextrose 12.5 gm 08/15/20 20:07 08/20/20 16:58 Dextrose 50% 25 Gm/50 Ml Syringe IV PUSH 12.5 gm PRN PRN Administration Hypoglycemia Protocol Famotidine 20 mg 08/15/20 21:00 08/23/20 23:07 Famotidine 20 Mg/2 Ml Vial IV PUSH 20 mg Q12HR NATHAN Administration Furosemide 20 mg 08/16/20 17:00 08/23/20 16:12 Furosemide 20 Mg Tablet PO 20 mg BID NATHAN Administration Glucagon 1 mg 08/15/20 20:07 Glucagon For Inj 1 Mg Vial IM PRN PRN Hypoglycemia Protocol Glucose 15 gm 08/15/20 20:07 Glucose Oral Gel 15 Gm Of Glucse In 37.5 Gm Tube PO PRN PRN Hypoglycemia Protocol Heparin Sodium (Porcine) 500 units 08/17/20 08:53 08/24/20 06:05 Heparin Sod Flush 500 Units/5 Ml Syringe IV PUSH 500 units PRN PRN Administration see comments below Dextrose 1,000 mls @ 100 mls/hr 08/15/20 20:07 Dextrose 5% 1,000 Ml IVPB PRN PRN Hypoglycemia Protocol Sodium Chloride 1,000 mls @ 100 mls/hr 08/16/20 00:45 08/23/20 21:58 Julisa
[2020-08-24] MEDS: SODIUM CHLORIDE 0.9% IV 1,000 ML 100 ML IV CONT ×2 (10:31→20:25)
[2020-08-24] MEDS: LIDOCAINE 5% PATCH 1 PATCH TRANSDERM (10:32)
[2020-08-24] MEDS: FUROSEMIDE 20 MG TABLET PO ×2 (10:32→17:14)
[2020-08-24] MEDS: FAMOTIDINE 20 MG/2 ML VIAL IV PUSH ×2 (10:32→20:17)
[2020-08-24] MEDS: TOLNAFTATE 1% POWDER 45 GM BTL 1 APPLIC TOPICAL ×2 (10:34→20:17)
[2020-08-24] MEDS: POTASSIUM CHLORIDE 20 MEQ PACKET (FOR LIQUID) 40 MEQ PO (10:34)
[2020-08-24 15:35] VITALS: BP 123/78; PULSE 88; RESP 18; TEMP 35.9; O2SAT 100
[2020-08-24 17:23] LABS: Glucose Point of Care 85 (65-105)
--- NOTE | 2020-08-24 17:38 | PM.IMPN ---
Progress Note: A&P Assessment and Plan (1) Septic shock: Code(s): A41.9 - Sepsis, unspecified organism; R65.21 - Severe sepsis with septic shock Status: Acute Assessment and Plan: improving after procedure, urology and oncology rounding. 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, lungs, status post 3 sets of chemotherapy and has completed radiation therapy he was sent to emergency department from his oncology office with complaint of shortness of breath stating unable to breathe, constipated and pain all over the body, patient was found to be and shock septic Vs hypovolemic with leukocytosis and elevated lactic acid, suspected patient may have UTI was started on Rocephin,Patient was seen by urology and had a cystoscopy, ureteral stents were placed, his creatinine has improved to 0.8 compared 2.6 upon arrival, however urine culture is negative and so far no growth in blood culture, patient had developed diarrhea Rocephin was stopped on 08/19, on 08/22 patient appears quite ill and in pain in arms and hand appear blue, spoke with the oncologist on 08/21 recommending hospice care as patient has no option for treatment patient has extensive metastasis of his cancer as he presented to oncologist very late, I spoke with the patient's on 08/21 suggesting hospice care or comfort care for the patient, patient was seen by GI stated patient is not a candidate for PEG due metastatic cancer and ascites, patient wanted another opinion from surgeon and he was seen by the surgeon and he had same opinion for surgical placement of PEG as GI and additional risk of surgery, finally Dobbhoff was placed on 08/22 and he was started on tube feeding which he is tolerating, his not present in the room, unfortunately patient is still quite somnolent unable to provide any review of symptoms. Patient spent night with the patient and in his room has come to conclusion the patient will require more help and prognosis is poor, I spoke with the patient's today and she is considering hospice care, patient understand the patient cannot be discharged home on Dobbhoff. Patient still quite somnolent unable to provide any review of symptoms. (2) Acute kidney injury: Code(s): N17.9 - Acute kidney failure, unspecified Status: Acute Assessment and Plan: Patient underwent cystoscopy with bilateral stent placement in tolerated procedure well. Creat is 1.3. Continue iv fluids and UC is negative Pt has catheter in situ urine is dark in color (3) Elevated troponin: Code(s): R77.8 - Other specified abnormalities of plasma proteins Status: Acute Assessment and Plan: Troponin profile is completely flat. No evidence of acute myocardial ischemia. 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, lungs, status post 3 sets of chemotherapy and has completed radiation therapy he was sent to emergency department from his oncology office with complaint of shortness of breath stating unable to breathe, constipated and pain all over the body, patient was found to be and shock septic Vs hypovolemic with leukocytosis and elevated lactic acid, suspected patient may have UTI was started on Rocephin,Patient was seen by urology and had a cystoscopy, ureteral stents were placed, his creatinine has improved to 0.8 compared 2.6 upon arrival, however urine culture is negative and so far no growth in blood culture, patient had developed diarrhea Rocephin was stopped on 08/19, on 08/22 patient appe
[2020-08-24 22:59] VITALS: BP 105/56; PULSE 72; RESP 18; TEMP 36.6; O2SAT 97
[2020-08-25 00:33] LABS: Glucose Point of Care 112 (65-105)
[2020-08-25 05:56] LABS: Hematocrit 25.8 % (42.0-52.0); Hemoglobin 8.1 g/dL (14.0-18.0); Mean Corpuscular HGB Conc 31.4 g/dl (32-36); Mean Corpuscular Hemoglobin 27.3 pg (26-34); Mean Corpuscular Volume 86.9 fl (80-100); Mean Platelet Volume 8.9 fl (7.4-10.4); Platelet Count Result 89 k/mm3 (150-375); Red Blood Count 2.97 M/mm3 (4.6-6.20); Red Cell Distribution Width 18.6 % (11.5-14.5)
[2020-08-25 05:57] LABS: Glucose Point of Care 115 (65-105)
[2020-08-25 06:10] LABS: Anion Gap 7 mmol/L (8-16); Blood Urea Nitrogen 27 mg/dL (9-20); Calcium 6.6 mg/dL (8.4-10.2); Carbon Dioxide 19 mmol/L (22-30); Chloride 111 mmol/L (98-107); Estimated CRCL calculation 84 ml/min; Estimated Glomerular Filt Rate > 60; Glucose 111 mg/dL (75-110); Potassium 3.5 mmol/L (3.4-5.0); Sodium 137 mmol/L (137-145)
[2020-08-25] MEDS: CENTRAL LINE FLUSH 10 ML IV PUSH ×3 (06:27→23:48)
[2020-08-25] MEDS: SODIUM CHLORIDE 0.9% IV 1,000 ML 100 ML IV CONT ×2 (06:27→17:24)
[2020-08-25] MEDS: CENTRAL LINE FLUSH 20 ML IV PUSH (06:27)
[2020-08-25] MEDS: FAMOTIDINE 20 MG/2 ML VIAL IV PUSH ×2 (08:56→23:48)
[2020-08-25] MEDS: LIDOCAINE 5% PATCH 1 PATCH TRANSDERM (08:56)
[2020-08-25] MEDS: FUROSEMIDE 20 MG TABLET PO ×2 (08:56→17:33)
[2020-08-25 09:08] VITALS: BP 135/78; PULSE 100; RESP 16; TEMP 36.2; O2SAT 98
[2020-08-25] MEDS: TOLNAFTATE 1% POWDER 45 GM BTL 1 APPLIC TOPICAL ×2 (09:14→23:48)
[2020-08-25] MEDS: POTASSIUM CHLORIDE 20 MEQ PACKET (FOR LIQUID) 40 MEQ PO (10:30)
--- NOTE | 2020-08-25 11:36 | PCNFU ---
Nutrition Follow-Up Complete: Involuntary weight loss related to metastatic cancer as evidenced by reported decreased intake and weight loss and documented weight loss of 8.9% x 3 months which is significant. Goal: Patient to consume 75% of meals/supplements or greater and maintain weight. Limited progress towards goal. We will continue current goal. Pt current nutrition is Jevity 1.5 at 20 ml/hr. Nutrition recommendation: advance tube feedings by 10 ml/hr q hours today goal rate of 60 ml/hr. Last recorded weight is 80.4 kg. up from 76.4 kg. Bowel Motility: +BM noted 08/23 Labs Reviewed:BUN 27,Glu 111, Hct 25.8,Hgb 8.1 Meds Noted:Pepsid,Lasix,NS. Additional Notes: Nutrition follow up. Spoke with Dr. Jin today regarding nutrition. Patient had some N/V reported on 08/24. Orders to advance tube feedings by 10 ml/hr q 4 hours today goal rate of 60 ml/hr to meet caloric needs. Patient continues to refuse oral feedings. Hospice consult. Monitoring: Follow up every Friday and Friday.
[2020-08-25 11:58] LABS: Glucose Point of Care 108 (65-105)
[2020-08-25 17:20] VITALS: BP 139/80; PULSE 105; RESP 18; TEMP 36.6; O2SAT 96
[2020-08-25 18:03] LABS: Glucose Point of Care 127 (65-105)
--- NOTE | 2020-08-25 18:24 | PM.IMPN ---
Progress Note: A&P Assessment and Plan (1) Septic shock: Code(s): A41.9 - Sepsis, unspecified organism; R65.21 - Severe sepsis with septic shock Status: Acute Assessment and Plan: improving after procedure, urology and oncology rounding. I have stop iv rocephin due to severe diarrhea symptoms. 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, lungs, status post 3 sets of chemotherapy and has completed radiation therapy he was sent to emergency department from his oncology office with complaint of shortness of breath stating unable to breathe, constipated and pain all over the body, patient was found to be and shock septic Vs hypovolemic with leukocytosis and elevated lactic acid, suspected patient may have UTI was started on Rocephin,Patient was seen by urology and had a cystoscopy, ureteral stents were placed, his creatinine has improved to 0.8 compared 2.6 upon arrival, however urine culture is negative and so far no growth in blood culture, patient had developed diarrhea Rocephin was stopped on 08/19, on 08/22 patient appears quite ill and in pain in arms and hand appear blue, spoke with the oncologist on 08/21 recommending hospice care as patient has no option for treatment patient has extensive metastasis of his cancer as he presented to oncologist very late, I spoke with the patient's on 08/21 suggesting hospice care or comfort care for the patient, patient was seen by GI stated patient is not a candidate for PEG due metastatic cancer and ascites, patient wanted another opinion from surgeon and he was seen by the surgeon and he had same opinion for surgical placement of PEG as GI and additional risk of surgery, finally Dobbhoff was placed on 08/22 and he was started on tube feeding which he is tolerating, his not present in the room, unfortunately patient is still quite somnolent unable to provide any review of symptoms. Patient spent night with the patient and in his room has come to conclusion the patient will require more help and prognosis is poor, I spoke with the patient's on 08/23 and she is considering hospice care, patient understand the patient cannot be discharged home on Dobbhoff. Discussed with dietitian today will advance tube feeding as tolerated goal is 60 mL/hour, Patient still quite somnolent unable to provide any review of symptoms. (2) Acute kidney injury: Code(s): N17.9 - Acute kidney failure, unspecified Status: Acute Assessment and Plan: Patient underwent cystoscopy with bilateral stent placement in tolerated procedure well. Creat is 1.3. Continue iv fluids and UC is negative Pt has catheter in situ urine is dark in color (3) Elevated troponin: Code(s): R77.8 - Other specified abnormalities of plasma proteins Status: Acute Assessment and Plan: Troponin profile is completely flat. No evidence of acute myocardial ischemia. 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
[2020-08-25 20:24] VITALS: BP 127/74; PULSE 102; RESP 26; TEMP 36.6; O2SAT 97
[2020-08-25 23:57] LABS: Glucose Point of Care 93 (65-105)
[2020-08-26] MEDS: SODIUM CHLORIDE 0.9% IV 1,000 ML 100 ML IV CONT ×2 (03:26→14:48)
[2020-08-26 05:07] VITALS: BP 125/68; PULSE 97; RESP 18; TEMP 36.3; O2SAT 93
[2020-08-26 05:15] LABS: Hematocrit 24.8 % (42.0-52.0); Hemoglobin 7.7 g/dL (14.0-18.0); Mean Corpuscular Hemoglobin 27.3 pg (26-34); Mean Corpuscular Volume 87.9 fl (80-100); Mean Platelet Volume 8.7 fl (7.4-10.4); Platelet Count Result 87 k/mm3 (150-375); Red Blood Count 2.82 M/mm3 (4.6-6.20); Red Cell Distribution Width 18.6 % (11.5-14.5); White Blood Count 6.3 K/mm3 (4.5-10.0)
[2020-08-26 05:25] LABS: Glucose Point of Care 77 (65-105)
[2020-08-26 05:34] LABS: Anion Gap 2 mmol/L (8-16); Blood Urea Nitrogen 28 mg/dL (9-20); Calcium 6.7 mg/dL (8.4-10.2); Carbon Dioxide 20 mmol/L (22-30); Chloride 115 mmol/L (98-107); Estimated CRCL calculation 95 ml/min; Estimated Glomerular Filt Rate > 60; Glucose 91 mg/dL (75-110); Potassium 4.1 mmol/L (3.4-5.0); Sodium 137 mmol/L (137-145)
[2020-08-26] MEDS: CENTRAL LINE FLUSH 10 ML IV PUSH ×3 (07:04→20:14)
[2020-08-26] MEDS: LIDOCAINE 5% PATCH 1 PATCH TRANSDERM (08:49)
[2020-08-26] MEDS: FUROSEMIDE 20 MG TABLET PO ×2 (08:49→16:12)
[2020-08-26] MEDS: FAMOTIDINE 20 MG/2 ML VIAL IV PUSH ×2 (08:49→20:14)
[2020-08-26] MEDS: TOLNAFTATE 1% POWDER 45 GM BTL 1 APPLIC TOPICAL ×2 (08:49→20:14)
--- NOTE | 2020-08-26 11:16 | PC.NURSE ---
Patient removed feeding tube during hourly shift 08/25/20. Orders on worklist for tube feeding flush Q4H will not be acknowledged as the tube is not in place anymore.
--- NOTE | 2020-08-26 11:51 | PM.IMPN ---
Progress Note: A&P Assessment and Plan (1) Septic shock: Code(s): A41.9 - Sepsis, unspecified organism; R65.21 - Severe sepsis with septic shock Status: Acute Assessment and Plan: improving after procedure, urology and oncology rounding. I have stop iv rocephin due to severe diarrhea symptoms. 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, lungs, status post 3 sets of chemotherapy and has completed radiation therapy he was sent to emergency department from his oncology office with complaint of shortness of breath stating unable to breathe, constipated and pain all over the body, patient was found to be and shock septic Vs hypovolemic with leukocytosis and elevated lactic acid, suspected patient may have UTI was started on Rocephin,Patient was seen by urology and had a cystoscopy, ureteral stents were placed, his creatinine has improved to 0.8 compared 2.6 upon arrival, however urine culture is negative and so far no growth in blood culture, patient had developed diarrhea Rocephin was stopped on 08/19, on 08/22 patient appears quite ill and in pain in arms and hand appear blue, spoke with the oncologist on 08/21 recommending hospice care as patient has no option for treatment patient has extensive metastasis of his cancer as he presented to oncologist very late, I spoke with the patient's on 08/21 suggesting hospice care or comfort care for the patient, patient was seen by GI stated patient is not a candidate for PEG due metastatic cancer and ascites, patient wanted another opinion from surgeon and he was seen by the surgeon and he had same opinion for surgical placement of PEG as GI and additional risk of surgery, finally Dobbhoff was placed on 08/22 and he was started on tube feeding which he is tolerating, his not present in the room, unfortunately patient is still quite somnolent unable to provide any review of symptoms. Patient spent night with the patient and in his room has come to conclusion the patient will require more help and prognosis is poor, I spoke with the patient's on 08/23 and she is considering hospice care, patient understand the patient cannot be discharged home on Dobbhoff. Discussed with dietitian today will advance tube feeding as tolerated goal is 60 mL/hour, Patient still quite somnolent unable to provide any review of symptoms. Unfortunately patient pulled out his Dobbhoff last night 08/26 we are encouraging patient to oral intake will continue to monitor awaiting family decision for hospice (2) Acute kidney injury: Code(s): N17.9 - Acute kidney failure, unspecified Status: Acute Assessment and Plan: Patient underwent cystoscopy with bilateral stent placement in tolerated procedure well. Creat is 1.3. Continue iv fluids and UC is negative Pt has catheter in situ urine is dark in color (3) Elevated troponin: Code(s): R77.8 - Other specified abnormalities of plasma proteins Status: Acute Assessment and Plan: Troponin profile is completely flat. No evidence of acute myocardial ischemia. 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
[2020-08-26] MEDS: DEXTROSE 50% 25 GM/50 ML SYRINGE IV PUSH (11:56)
[2020-08-26 12:02] LABS: Glucose Point of Care 105 (65-105)
[2020-08-26 12:02] LABS: Glucose Point of Care 23 (65-105)
[2020-08-26 12:03] LABS: Glucose Point of Care 97 (65-105)
[2020-08-26 14:00] VITALS: BP 114/77; PULSE 92; RESP 18; TEMP 36.6; O2SAT 93
[2020-08-26 17:38] LABS: Glucose Point of Care 31 (65-105)
[2020-08-26 17:38] LABS: Glucose Point of Care 82 (65-105)
[2020-08-26 17:38] LABS: Glucose Point of Care 26 (65-105)
--- NOTE | 2020-08-26 17:47 | PC.NURSE ---
Multiple attempts at getting an accurate blood sugar reading. When right hand is used levels are critically low. When left hand is used levels are within normal ranges. Glucose monitors have both been used to ensure an accurate reading. They have also been recalibrated as an extra step. Will pass this information on to night nurse and recommend taking sugars in patient's left hand.
[2020-08-26 22:00] VITALS: BP 110/75; PULSE 79; RESP 20; TEMP 36.3; O2SAT 99
[2020-08-27 00:09] LABS: Glucose Point of Care 70 (65-105)
[2020-08-27] MEDS: SODIUM CHLORIDE 0.9% IV 1,000 ML 100 ML IV CONT ×3 (01:30→22:55)
[2020-08-27] MEDS: CENTRAL LINE FLUSH 10 ML IV PUSH ×3 (05:10→21:52)
[2020-08-27] MEDS: CENTRAL LINE FLUSH 20 ML IV PUSH (05:10)
[2020-08-27 05:38] LABS: Hematocrit 26.8 % (42.0-52.0); Hemoglobin 8.2 g/dL (14.0-18.0); Mean Corpuscular HGB Conc 30.6 g/dl (32-36); Mean Corpuscular Hemoglobin 27.5 pg (26-34); Mean Corpuscular Volume 89.9 fl (80-100); Platelet Count Result 98 k/mm3 (150-375); Red Blood Count 2.98 M/mm3 (4.6-6.20); Red Cell Distribution Width 18.6 % (11.5-14.5); White Blood Count 7.5 K/mm3 (4.5-10.0)
[2020-08-27 06:00] VITALS: BP 135/83; PULSE 97; RESP 22; TEMP 36.9; O2SAT 100
[2020-08-27 06:03] LABS: Anion Gap 5 mmol/L (8-16); Blood Urea Nitrogen 30 mg/dL (9-20); Carbon Dioxide 18 mmol/L (22-30); Chloride 114 mmol/L (98-107); Estimated CRCL calculation 84 ml/min; Estimated Glomerular Filt Rate > 60; Glucose 88 mg/dL (75-110); Potassium 4.1 mmol/L (3.4-5.0); Sodium 137 mmol/L (137-145)
[2020-08-27 06:33] LABS: Glucose Point of Care 85 (65-105)
[2020-08-27 06:33] LABS: Glucose Point of Care < 20 (65-105)
[2020-08-27 06:33] LABS: Glucose Point of Care 57 (65-105)
[2020-08-27] MEDS: FAMOTIDINE 20 MG/2 ML VIAL IV PUSH ×2 (08:32→21:52)
[2020-08-27] MEDS: FUROSEMIDE 20 MG TABLET PO ×2 (08:32→16:54)
[2020-08-27] MEDS: TOLNAFTATE 1% POWDER 45 GM BTL 1 APPLIC TOPICAL ×2 (08:33→21:52)
[2020-08-27 12:43] LABS: Glucose Point of Care 94 (65-105)
[2020-08-27 14:00] VITALS: BP 105/68; PULSE 75; RESP 16; TEMP 37.2; O2SAT 95
[2020-08-27 17:02] LABS: Glucose Point of Care 75 (65-105)
[2020-08-27 20:02] VITALS: BP 102/80; PULSE 104; RESP 24; TEMP 36.8; O2SAT 90
[2020-08-27 22:02] LABS: Glucose Point of Care 91 (65-105)
[2020-08-28] MEDS: CENTRAL LINE FLUSH 10 ML IV PUSH ×2 (05:10→13:37)
[2020-08-28] MEDS: CENTRAL LINE FLUSH 20 ML IV PUSH (05:10)
[2020-08-28 05:17] LABS: Hematocrit 25.2 % (42.0-52.0); Hemoglobin 7.7 g/dL (14.0-18.0); Mean Corpuscular HGB Conc 30.6 g/dl (32-36); Mean Corpuscular Volume 91.6 fl (80-100); Mean Platelet Volume 9.2 fl (7.4-10.4); Platelet Count Result 82 k/mm3 (150-375); Red Blood Count 2.75 M/mm3 (4.6-6.20); Red Cell Distribution Width 19.1 % (11.5-14.5); White Blood Count 10.1 K/mm3 (4.5-10.0)
[2020-08-28 05:29] LABS: Anion Gap 9 mmol/L (8-16); Blood Urea Nitrogen 34 mg/dL (9-20); Calcium 7.4 mg/dL (8.4-10.2); Carbon Dioxide 15 mmol/L (22-30); Chloride 117 mmol/L (98-107); Estimated CRCL calculation 70 ml/min; Estimated Glomerular Filt Rate > 60; Glucose 88 mg/dL (75-110); Potassium 4.6 mmol/L (3.4-5.0); Sodium 141 mmol/L (137-145)
[2020-08-28 05:44] VITALS: BP 89/37; PULSE 100; RESP 22; TEMP 36.6; O2SAT 97
[2020-08-28 05:57] VITALS: BP 100/78
[2020-08-28 07:08] LABS: Glucose Point of Care 76 (65-105)
--- NOTE | 2020-08-28 09:00 | PM.IMPN ---
Progress Note: A&P Assessment and Plan (1) Septic shock: Code(s): A41.9 - Sepsis, unspecified organism; R65.21 - Severe sepsis with septic shock Status: Acute Assessment and Plan: improving after procedure, urology and oncology rounding. I have stop iv rocephin due to severe diarrhea symptoms. 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, lungs, status post 3 sets of chemotherapy and has completed radiation therapy he was sent to emergency department from his oncology office with complaint of shortness of breath stating unable to breathe, constipated and pain all over the body, patient was found to be and shock septic Vs hypovolemic with leukocytosis and elevated lactic acid, suspected patient may have UTI was started on Rocephin,Patient was seen by urology and had a cystoscopy, ureteral stents were placed, his creatinine has improved to 0.8 compared 2.6 upon arrival, however urine culture is negative and so far no growth in blood culture, patient had developed diarrhea Rocephin was stopped on 08/19, on 08/22 patient appears quite ill and in pain in arms and hand appear blue, spoke with the oncologist on 08/21 recommending hospice care as patient has no option for treatment patient has extensive metastasis of his cancer as he presented to oncologist very late, I spoke with the patient's on 08/21 suggesting hospice care or comfort care for the patient, patient was seen by GI stated patient is not a candidate for PEG due metastatic cancer and ascites, patient wanted another opinion from surgeon and he was seen by the surgeon and he had same opinion for surgical placement of PEG as GI and additional risk of surgery, finally Dobbhoff was placed on 08/22 and he was started on tube feeding which he is tolerating, his not present in the room, unfortunately patient is still quite somnolent unable to provide any review of symptoms. Patient spent night with the patient and in his room has come to conclusion the patient will require more help and prognosis is poor, I spoke with the patient's on 08/23 and she is considering hospice care, patient understand the patient cannot be discharged home on Dobbhoff. Discussed with dietitian today will advance tube feeding as tolerated goal is 60 mL/hour, Patient still quite somnolent unable to provide any review of symptoms. Unfortunately patient pulled out his Dobbhoff last night 08/26 we are encouraging patient to oral intake will continue to monitor awaiting family decision for hospice (2) Acute kidney injury: Code(s): N17.9 - Acute kidney failure, unspecified Status: Acute Assessment and Plan: Patient underwent cystoscopy with bilateral stent placement in tolerated procedure well. Creat is 1.3. Continue iv fluids and UC is negative Pt has catheter in situ urine is dark in color (3) Elevated troponin: Code(s): R77.8 - Other specified abnormalities of plasma proteins Status: Acute Assessment and Plan: Troponin profile is completely flat. No evidence of acute myocardial ischemia. (4) Anemia: Qualifiers: Anemia type: unspecified type Qualified Code(s): D64.9 - Anemia, unspecified Code(s): D64.9 - Anemia, unspecified Status: Acute Assessment and Plan: Hb is 10.5 after blood transfusion Subjective Date/time seen: 08/27/20 Exam Narrative: Exam Narrative: Patient appears chronically ill and in pain Patient is comfortable, NAD HEENT: eyes are clear and none icteric LUNGS: Bilateral fair entry with rhonchi HEART: RR S1S2 ABD: BS+, distended diffusely tender Lower extremities: no edema SKIN: nonjaundiced Neuro: Quite somnolent. Objective Data Vital Signs Vital Signs: Vital Signs - 24 hr 08/27/20 14:00 08/27/20 20:02 08/28/20 05:44 Temperature 99.0 F 98.3 F 97.8 F Pulse Rate 75 104 H 100 Respiratory Rate 16 24 H 22 H
[2020-08-28] MEDS: LIDOCAINE 5% PATCH 1 PATCH TRANSDERM (09:02)
[2020-08-28] MEDS: FAMOTIDINE 20 MG/2 ML VIAL IV PUSH (09:02)
[2020-08-28] MEDS: TOLNAFTATE 1% POWDER 45 GM BTL 1 APPLIC TOPICAL (09:03)
[2020-08-28] MEDS: DEXTROSE 5% 1,000 ML 1,000 ML 100 ML IVPB (09:08)
[2020-08-28 12:57] LABS: Glucose Point of Care 88 (65-105)
--- NOTE | 2020-08-28 13:59 | P.DN_ITS ---
Discharge Sum: Prov Provider Primary care physician: Hua Burkett MD Admitting provider: Vilma Estrada MD Consults: 08/15/20 20:10 Consult to Physician Routine Comment: Consulting Provider: Hua Burkett Reason for consultation: oncology Has provider been notified: Yes Consult to Physician Routine Comment: SPOKE WITH SHIVA SO Consulting Provider: Jason Macias Reason for consultation: urology Has provider been notified: Yes 08/18/20 Consult to Dietitian Routine Reason for Consult:: failure to thrive stage 4 cancer Dobohoff placement, consult for tube feedings. Consult to Physician Routine Comment: EXCHANGE NOTIFIED CONSULT Consulting Provider: Virgil Faith director call center sales/MD group to consult: GI Reason for consultation: PEG placement Has provider been notified: Yes 08/21/20 17:08 Consult to Physician Routine Comment: Consulting Provider: Robert uRth director call center sales/MD group to consult: General Surgery Reason for consultation: PEG Has provider been notified: Yes 08/25/20 Care Coordination Consult Routine Comment: Reason for Consult:: Hospice Referral Discharge Sum: Summary Date and Time Date of admission: 08/15/20 20:08 Additional Data Attending physician: Vilma Estrada MD
[2020-08-28 14:49] VITALS: BP 98/70; PULSE 60; RESP 26; TEMP 36; O2SAT 97
[2020-08-28] MEDS: HEPARIN SOD FLUSH 500 UNITS/5 ML SYRINGE IV PUSH (15:03)
--- NOTE | 2020-09-25 08:37 | PM.DS ---
DS: Admitting Diagnosis Admitting Diagnosis Admitting Diagnosis: Altered mental status DS: Discharge Diagnosis Discharge Diagnosis (1) Septic shock: Code(s): A41.9 - Sepsis, unspecified organism; R65.21 - Severe sepsis with septic shock Status: Acute Assessment and Plan: improving after procedure, urology and oncology rounding. I have stop iv rocephin due to severe diarrhea symptoms. 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, lungs, status post 3 sets of chemotherapy and has completed radiation therapy he was sent to emergency department from his oncology office with complaint of shortness of breath stating unable to breathe, constipated and pain all over the body, patient was found to be and shock septic Vs hypovolemic with leukocytosis and elevated lactic acid, suspected patient may have UTI was started on Rocephin,Patient was seen by urology and had a cystoscopy, ureteral stents were placed, his creatinine has improved to 0.8 compared 2.6 upon arrival, however urine culture is negative and so far no growth in blood culture, patient had developed diarrhea Rocephin was stopped on 08/19, on 08/22 patient appears quite ill and in pain in arms and hand appear blue, spoke with the oncologist on 08/21 recommending hospice care as patient has no option for treatment patient has extensive metastasis of his cancer as he presented to oncologist very late, I spoke with the patient's on 08/21 suggesting hospice care or comfort care for the patient, patient was seen by GI stated patient is not a candidate for PEG due metastatic cancer and ascites, patient wanted another opinion from surgeon and he was seen by the surgeon and he had same opinion for surgical placement of PEG as GI and additional risk of surgery, finally Dobbhoff was placed on 08/22 and he was started on tube feeding which he is tolerating, his not present in the room, unfortunately patient is still quite somnolent unable to provide any review of symptoms. Patient spent night with the patient and in his room has come to conclusion the patient will require more help and prognosis is poor, I spoke with the patient's on 08/23 and she is considering hospice care, patient understand the patient cannot be discharged home on Dobbhoff. Discussed with dietitian today will advance tube feeding as tolerated goal is 60 mL/hour, Patient still quite somnolent unable to provide any review of symptoms. Unfortunately patient pulled out his Dobbhoff last night 08/26 we are encouraging patient to oral intake will continue to monitor awaiting family decision for hospice (2) Acute kidney injury: Code(s): N17.9 - Acute kidney failure, unspecified Status: Acute Assessment and Plan: Patient underwent cystoscopy with bilateral stent placement in tolerated procedure well. Creat is 1.3. Continue iv fluids and UC is negative Pt has catheter in situ urine is dark in color (3) Elevated troponin: Code(s): R77.8 - Other specified abnormalities of plasma proteins Status: Acute Assessment and Plan: Troponin profile is completely flat. No evidence of acute myocardial ischemia. (4) Anemia: Qualifiers: Anemia type: unspecified type Qualified Code(s): D64.9 - Anemia, unspecified Code(s): D64.9 - Anemia, unspecified Status: Acute Assessment and Plan: Hb is 10.5 after blood transfusion DS: Summary Hospital Course Reason for hospitalization: Chief complaint: Altered mental status Narrative: Germain Hays is a 69 year old male with a past medical history of widely metastatic melanoma diagnosis May 2020 who presented to the ER from oncology office due to pain in altered mental status.. The patient's complaint on arrival to the ER was ?I can not breathe.? However, at the time of my evaluation the patient denies any shortness of breath or
== END 2020-08-28 16:59 | disposition hospice, home (50) | DRG 853 ==
LOC: ANHED 20:07 → ANHSURGERY 21:10 → ANHIMU 23:33 → ANHED 08-17 09:32 → ANHSURGERY 08-17 09:32 → ANHIMU 08-17 10:28 → ANH3MED 08-22 01:16 → ANHIMU 08-29 15:39
PROVIDERS: Emergency Medicine Emergency Medical Services; Family Medicine; Internal Medicine Gastroenterology; Surgery; Admitting Provider Internal Medicine; Emergency Provider General Practice; Visit Provider Family Medicine
PROC: 0T788DZ Dilation of Bilateral Ureters with Intraluminal Device, Via Natural or Artificial Opening Endoscopic (ICD-10-PCS; CPT 52352; principal; 2020-08-15 08:45)
DX: A41.9 Sepsis, unspecified organism (principal); R65.21 Severe sepsis with septic shock; N39.0 Urinary tract infection, site not specified; N17.9 Acute kidney failure, unspecified; N13.2 Hydronephrosis with renal and ureteral calculous obstruction; E46 Unspecified protein-calorie malnutrition; C78.02 Secondary malignant neoplasm of left lung; C78.01 Secondary malignant neoplasm of right lung; C78.5 Secondary malignant neoplasm of large intestine and rectum; C79.71 Secondary malignant neoplasm of right adrenal gland; C79.51 Secondary malignant neoplasm of bone; C78.7 Secondary malignant neoplasm of liver and intrahepatic bile duct; C78.6 Secondary malignant neoplasm of retroperitoneum and peritoneum; R18.8 Other ascites; K52.1 Toxic gastroenteritis and colitis; T36.1X5A Adverse effect of cephalosporins and other beta-lactam antibiotics, initial encounter; C43.9 Malignant melanoma of skin, unspecified; E86.0 Dehydration; D53.1 Other megaloblastic anemias, not elsewhere classified; R62.7 Adult failure to thrive; Z68.31 Body mass index [BMI] 31.0-31.9, adult; Z87.891 Personal history of nicotine dependence; K59.00 Constipation, unspecified; R79.89 Other specified abnormal findings of blood chemistry; K80.20 Calculus of gallbladder without cholecystitis without obstruction
CPT/HCPCS: 36415; 36430; 43752; 49083; 71045; 74018; 74176; 74420; 80048; 80053; 81001; 82550; 83605; 83690; 83880; 84484; 85014; 85018; 85025; 85027; 85610; 85730; 86140; 86850; 86900; 86901; 86923; 87040; 87086; 88104; 88108; 88305; 88342; 93005; 93923; 96361; 96365; 97110; 97162; 97166; 97535; 99285; A9270; C1758; C1769; C2617; J0696; J2370; J2405; J2704; J3010; J3480; J7030; J7050; J7070; J7120; P9016; Q9966